=== PATIENT | male | born 1940 | race Two or more races ===

== ENCOUNTER 2017-03-17 14:02 | Inpatient (IN) | payer MEDICARE, BC ==
[~2017-03-17] VITALS: Ht 167.6 cm; Wt 73.5 kg
--- NOTE | 2017-03-17 14:05 | NUR ---
[id number] FROM [facility] RECOVERY: ALOC, PINPOINT PUPILS. ELECTRIC BRAIN WAVE EQUIPMENT MECHANIC ~ 0900AM. PT ALSO NOTED HYPOXIC AND LOW BP. PLACED PT ON NON REBREATHER WITH NOTED HELP. PT REMAINS ALTERED. ANSWERS SIMPEL QUESTIONS. AFEBRILE. GOWNED PT AND PLACED ON TELE MONITOR
[2017-03-17] MEDS ORDERED: NALOXONE PREFILLED SYRINGE 2 MG/2 ML SYRINGE ONE (14:20)
[2017-03-17] MEDS ORDERED: NALOXONE HCL 0.4 MG/ML AMPUL IV ONE (14:30)
[2017-03-17] MEDS ORDERED: IV NS 0.9% 1,000 ML BAG IV ONE ×2 (14:30→15:30)
--- NOTE | 2017-03-17 14:30 | NUR ---
EKG IN PROGRESS
[2017-03-17 14:37] LABS: BASOPHILS # (AUTO) 0.1 /CMM (0.0-0.2); BASOPHILS % (AUTO) 1.1 % (0.0-2.0); EOSINOPHILS # (AUTO) 0.1 /CMM (0.0-0.7); EOSINOPHILS % (AUTO) 0.7 % (0.0-6.0); HEMATOCRIT 42 % (39-51); HEMOGLOBIN 14.3 g/dL (13.5-17.5); LYMPHOCYTES # (AUTO) 1.2 /CMM (0.8-4.8); MEAN CORPUSCULAR HEMOGLOBIN 28 PG (26.0-33.0); MEAN CORPUSCULAR HGB CONC 34 g/dl (31.0-36.0); MEAN CORPUSCULAR VOLUME 82 fL (80-96); MONOCYTES # (AUTO) 0.6 /CMM (0.1-1.30); MONOCYTES % (AUTO) 6.8 % (2.0-12.0); NEUTROPHILS # (AUTO) 6.9 /CMM (1.8-8.9); NEUTROPHILS % (AUTO) 78.4 % (43.0-81.0); PLATELET COUNT (AUTO) 130 /CMM (150-450); RDW COEFFICIENT OF VARIATION 18.3 (11.5-15.0); RED BLOOD CELL COUNT(AUTO) 5.16 MIL/uL (4.5-6.0); WHITE BLOOD COUNT (AUTO) 8.9 K/uL (4.3-11.0)
[2017-03-17 14:47] LABS: CALCIUM, SERUM 8.9 mg/dL (8.5-10.1); CARBON DIOXIDE 26 mmol/L (21-32); CHLORIDE 103 mmol/L (98-107); GLUCOSE 108 mg/dL (74-106); POTASSIUM 3.9 mmol/L (3.5-5.1); SODIUM SERUM 137 mmol/L (136-145); UREA NITROGEN, BLOOD 30 mg/dL (7-18)
[2017-03-17] MEDS ORDERED: CHLO25CA10 PO (14:47)
[2017-03-17] MEDS ORDERED: FOLI1TAB16 PO (14:47)
[2017-03-17] MEDS ORDERED: VALA100026 PO (14:47)
[2017-03-17] MEDS ORDERED: DOXA8TAB79 PO (14:48)
--- NOTE | 2017-03-17 14:48 | NUR ---
PT WAS TAKEN TO CT
[2017-03-17 14:51] LABS: INR 0.91 (0.87-1.13)
[2017-03-17 14:54] LABS: TROPONIN I < 0.017 ng/mL (0.00-0.056)
[2017-03-17] MEDS ORDERED: BUPR2TAB3 SL (14:56)
[2017-03-17] MEDS ORDERED: BUPR8TAB4 SL (14:56)
[2017-03-17 14:57] LABS: ACETAMINOPHEN < 2 ug/ml (10-30); ALANINE AMINOTRANSFERASE 59 U/L (12-78); ALBUMIN 3.5 g/dL (3.4-5.0); ALCOHOL, BLOOD < 3 mg/dL (0-0); ALKALINE PHOSPHATASE 62 U/L (46-116); ASPARTATE AMINOTRANSFERASE 73 U/L (15-37); BILIRUBIN,DIRECT 0.1 mg/dL (0.0-0.2); BILIRUBIN,TOTAL 0.7 mg/dL (0.2-1.0); SALICYLATE 1.1 mg/dL (2.8-20.0); TOTAL PROTEIN, SERUM 7.2 g/dL (6.4-8.2)
[2017-03-17] MEDS ORDERED: THEANINE PO (14:58)
[2017-03-17 15:04] LABS: SERUM AMMONIA 16 umol/L (11-32)
--- NOTE | 2017-03-17 15:18 | NUR ---
URINE SAMPLE SENT TO LAB
[2017-03-17 15:36] LABS: APPEARANCE,URINE Clear (CLEAR); BILIRUBIN,URINE SMALL (NEGATIVE); BLOOD, URINE Negative Ery/uL (NEGATIVE); COLOR,URINE Yellow (YELLOW); KETONES,URINE 15 (NEGATIVE); LEUKOCYTE ESTERASE ,URINE Negative (NEGATIVE); NITRITE, URINE Negative (NEGATIVE); PH,URINE 5.5 (5.0-8.0); PROTEIN,URINE Trace mg/dl (NEGATIVE); UGLUCOSE Negative (NEGATIVE); UROBILINOGEN,URINE 0.2 EU/dL (0.2)
[2017-03-17 15:42] LABS: THYROID STIMULATING HORMONE 1.875 uIU/mL (0.358-3.74)
[2017-03-17 15:43] LABS: RBC,URINE 0-2 /HPF (0-2); WBC,URINE 0-2 /HPF (0-3)
[2017-03-17 15:44] LABS: BACTERIA,URINE None seen /HPF (None Seen); SQUAMOUS EPITHELIAL CELL,UR Rare /HPF (None Seen)
--- NOTE | 2017-03-17 16:01 | NUR ---
[employer] [phone]
[2017-03-17] MEDS ORDERED: CEFTRIAXONE 1GM BAG (ER ONLY) 1 GM/50 ML PIGGYBACK IV ONE (16:30)
[2017-03-17] MEDS ORDERED: AZITHROMYCIN 500 MG in IV D5W 250 ML IV ONE (16:30)
--- NOTE | 2017-03-17 16:44 | NUR ---
PT TRANSPORTED TO [place].
[2017-03-17 17:00] VITALS: BP 91/66
[2017-03-17] MEDS ORDERED: MAG HYDROX/AL HYDROX/SIMETH 30 ML UDC PO PRN ×2 (17:00)
[2017-03-17] MEDS ORDERED: MAGNESIUM HYDROXIDE 30 ML UDC PO PRN (17:00)
[2017-03-17] MEDS ORDERED: ZOLPIDEM TARTRATE 5 MG TABLET PO PRN ×2 (17:00)
[2017-03-17] MEDS ORDERED: Z GUARD REMEDY 2 OZ OINT TP PRN ×2 (17:00)
[2017-03-17] MEDS ORDERED: ENOXAPARIN SODIUM 40 MG/0.4 ML DISP.SYRIN SQ SCH (17:00)
[2017-03-17] MEDS ORDERED: ACETAMINOPHEN 325 MG TABLET PO PRN (17:00)
[2017-03-17] MEDS ORDERED: ONDANSETRON HCL/PF 4 MG/2 ML VIAL IVP PRN ×2 (17:00)
[2017-03-17] MEDS ORDERED: IV NS 0.9% 1,000 ML IV PRN (17:00)
[2017-03-17] MEDS ORDERED: HYDROCODONE/APAP 5/325MG 1 EACH TABLET PO PRN ×2 (17:00)
--- NOTE | 2017-03-17 17:00 | NUR ---
STEAM TRAIN DRIVERWILD LIFE MANAGER NOTES ADMITTED PT FROM ER WITH DX OF ACUTE WEAKNESS AND ACUTE ENCEPHALOPATY,WITH SECONDARY DX A.DEHYDRATION AND PRE-RENAL AZOTEMIA.PT IS TOO LETHARGIC WHEN TALKING.OCCASIONALLY OPENS HIS EYES AND RESPONDS TO NAME AND TACTILE STIMULI.PT HAS SMALL SKIN TEAR TO LEFT 4TH METACARPAL -INITIAL TX DONE.ON O2 AT 4L/MIN VIA N/C.IVF OF NS INFUSING WELL TO RT WRIST.NO S/S OF PAIN OR DISTRESS.CALL LIGHT PLACED WITHIN REACH.
[2017-03-17] MEDS: IV NS 0.9% 1,000 ML IV PRN (17:56)
--- NOTE | 2017-03-17 19:00 | NUR ---
RN NOTES: RECEIVED LYING ON BED,ON SEMI FOWLERS POSITION, ON TELE MONITOR SR RATE-73,WITH O2 INHALATION AT 2-3L/MIN VIA NASAL CANNULA, IVF OF NS AT 100CC/HR,CANNULA ON RW G#18 INTACT,PATIENT IS VERY LETHARGIC AND DROWSY, RESPOND ONLY TO PAINFUL STIMULI,BED LOW AND LOCKED, CALL LIGHT WITHIN EASY REACH,MONITOR LOC.LOVENOX GIVEN PER ENDORSEMENT.
[2017-03-17] MEDS: ENOXAPARIN SODIUM 40 MG/0.4 ML DISP.SYRIN SQ SCH (19:39)
[2017-03-17 20:00] VITALS: BP 100/65
--- NOTE | 2017-03-17 21:06 | NUR ---
RN NOTES: ENDORSED TO ANA LILIA(LISA) FOR CONTINUITY OF CARE.PATIENT IS STILL LETHARGIC AND SLEEPING AT ALL TIMES,KEEP ON CLOSE MONITORING.
[2017-03-17] MEDS: DOXAZOSIN MESYLATE (4 MG) 4 MG TABLET PO SCH (22:00)
--- NOTE | 2017-03-17 22:15 | NUR ---
TELE/RN SUCTIONED ORALLY DUE TO SALIVA RETENTION.
--- NOTE | 2017-03-17 23:09 | NUR ---
TELE/RN CARDURA NOT GIVEN AT THIS TIME, PATIENT IS VERY LETHARGIC, HIGH RISK FOR ASPIRATION.
[2017-03-18] VITALS (7 sets, daily range): BP systolic 100–129; BP diastolic 49–71
[2017-03-18] MEDS: IV NS 0.9% 1,000 ML IV PRN ×2 (03:23→15:12)
[2017-03-18 03:36] LABS: ABG BASE EXCESS -3.5 mmol/L; ABG PCO2 40.8 mmHg (35.0-45.0); ABG PH 7.348 (7.350-7.450); ABG PO2 72.5 mmHg (75.0-100.0); AaDO2 252.6 mmHg; COHb 0.2 % (0.5-1.5); MetHb 0.6 % (0.0-1.5); O2Hb 92.3 % (94.0-97.0); SITE, ABG Right Radial; VENT MODE, BG SIMPLE MASK
--- NOTE | 2017-03-18 05:19 | NUR ---
TELE/RN PATIENT HAS VERY SMALL AMOUNT URINE OUTPUT, ORDERED OBTAINED FROM EFRAIN EDOUARD, FOR STRAIGHT CATH.
--- NOTE | 2017-03-18 05:23 | NUR ---
TELE/RN UNABLE TO DO STRAIGHT CATH, CATHETER NOT GOING THROUGH. CHARGE NURSE ATTEMPTED, NOT SUCCESSFUL EITHER. MEDIA SALES CONSULTANT CALLED E.R., ER. WILL SEND SOMEBODY.
[2017-03-18] MEDS ORDERED: LIDOCAINE 2% JEL UROJET 10 ML MM ONE (05:43)
--- NOTE | 2017-03-18 06:07 | NUR ---
TELE/RN SARKIS, ENTERPRISE SYSTEMS MANAGER CAME AND SUCCESSFULLY INSERTED CUDET CATHETER WITH 400 MLS AVELINO CLEAR URINE OUTPUT.
--- NOTE | 2017-03-18 07:00 | NUR ---
TELE/RN PATIENT IS COMFORTABLY SLEEPING, NO DISTRESS NOTED, CALL LIGHT IN REACH. ALL NEEDS ATTENDED AT THIS TIME. WILL CONTINUE TO MONITOR.
[2017-03-18] MEDS ORDERED: PANTOPRAZOLE 40 MG TABLET.DR PO SCH (07:30)
[2017-03-18] MEDS: PANTOPRAZOLE 40 MG TABLET.DR PO SCH (07:30)
--- NOTE | 2017-03-18 08:00 | NUR ---
UNIT COORDINATOR AM NOTES RECEIVED PT STILL LETHARGIC.OCCASIONALLY OPENS HIS EYES AND RESPONDS TO NAME AND TACTILE STIMULI.ASLEEP MOST OF THE TIME.ON O2 AT 4L/MIN VIA N/C.IVF OF NS INFUSING WELL AT 100ML/HR TO RT WRIST.NO S/S OF PAIN OR DISTRESS.SPITTED A LOT OF THICK PHLEGM SECRETIONS.ORAL CARE DONE.PT CAN'T SWALLOW WELL AT THIS TIME.TRIED TO GIVE ONE SMALL ICE CHIP BUT PT IS STILL HAVING DIFFICULTY SWALLOWING.HELD ALL ORAL PILLS AND MEAL AT THIS TIME.PT SLEEPS MOST OF THE TIME.CALL LIGHT PLACED WITHIN REACH.
[2017-03-18] MEDS: FOLIC ACID 1 MG TABLET PO SCH (09:00)
[2017-03-18] MEDS: VALACYCLOVIR HCL 500 MG TABLET PO SCH (09:00)
[2017-03-18] MEDS: Thiamine 100 MG in IV D5W 50 ML IV SCH (15:31)
--- NOTE | 2017-03-18 15:49 | NUR ---
WAS SEEN BY P.T. AND STAYED WITH PT AT BEDSIDE DOING MAX ASSIST BY STANDING.
--- NOTE | 2017-03-18 17:36 | NUR ---
MED SURG 3 RN CLOSING NOTES PATIENT IN BED, ALERT AND RESTING COMFORTABLY. EASILY AROUSED AND ABLE TO VERBALIZE NEEDS. RIGHT WRIST IV SITE INFUSING WELL WITH 0.9 NS AT 100ML/HR. PATIENT ON 4L OF OXYGEN VIA NASAL CANNULA AND BREATHING COMFORTABLY. PATIENT DOES NOT VERBALIZE ANY PAIN OR SHOW SYMPTOMS OF DISTRESS. NEUROLOGICAL STATUS HAS IMPROVED, PATIENT IS ALERT AND ORIENTED TO PERSON, PLACE, TIME, RESPONDS TO VERBAL STIMULI AND FOLLOWS COMMANDS. BED IN LOW POSITION WITH TWO SIDE RAILS UP AND CALL LIGHT WITHIN REACH.
--- NOTE | 2017-03-18 18:20 | NUR ---
FED PATIENT DINNER WAS HAVING DIFFICULTY CHEWING MEAT AND MUSHROOMS BUT WAS ABLE TO CONSUME ONE CUP OF ICE CREAM AND ONE CUP OF PUDDING, AND 4 SPOONS OF PASTA.
--- NOTE | 2017-03-18 18:53 | NUR ---
DR MCKEON ORDERED LUMBAR PUNCTURE PROCEDURE AND QUE OF RADIOLOGY CALLED SAYING THERE IS NO RADIOLOGIST AVAILABLE TO DO THE PROCEDURE NOT TILL MONDAY.CONSENT OBTAINED FROM DAUGHTER,ARACELY YOUNG VIA PHONE FOR THE PROCEDURE.
--- NOTE | 2017-03-18 20:15 | NUR ---
MS/TRACER BULLET SECTION SUPERVISOR; RECEIVED PT IN BED TRYING TO GET OUT OF BED . ASSISTED AND REPOSITIONED IN BED WITH A HELP FROM AN RN. JOHN GILLILAND CAME AT THIS TIME FOR HER ROUND. SHE SAID TO TRANSFER THE PT CLOSER TO THE STATION. PT WITH CUDET FC WITH AVELINO URINE IN THE BAG 1OO ML. IVF ON PROGRESS. WITH O2 2L NC ON. PT WAS SAYING I WANT TO URINATE AND I TOLD THE PT HE HAS A CATH. ON. BED ON LOWER POSITION AND LOCKED FOR SAFETY. SIDE RAILS X 4 ARE UP FOR SAFETY AND PADDED. CONTINUE TO MONITOR. CALL LIGHT WITHIN REACH.
--- NOTE | 2017-03-18 21:00 | NUR ---
MS/AN/SSN 2 4 OPERATOR; PT MOVED TO 310-1 VIA BED.
[2017-03-18] MEDS: ENOXAPARIN SODIUM 40 MG/0.4 ML DISP.SYRIN SQ SCH (22:16)
[2017-03-18] MEDS: DOXAZOSIN MESYLATE (4 MG) 4 MG TABLET PO SCH (22:21)
[2017-03-19] MEDS: IV NS 0.9% 1,000 ML IV PRN (02:40)
--- NOTE | 2017-03-19 02:55 | NUR ---
MS/HELMET COVERER; PT TRYING TO GET OUT OF BED AND PT DID IT AND SAT ON THE CHAIR WITH AUDITOR INTERNAL AT THE BEDSIDE. PT VERY AGITATED AND COMBATIVE.
--- NOTE | 2017-03-19 03:25 | NUR ---
MS/SERVICE AIDE; I PLACED A CALL TO DR. SILKE COTO AND SPOKE TO HER THAT PT IS VERY AGITATED AND COMBATIVE AND WITH ORDER TO GIVE SEROQUEL 25 MG PO X 1 AND IF PT REFUSE TO CALL HER BACK.
[2017-03-19] MEDS ORDERED: QUETIAPINE FUMARATE 25 MG TABLET PO ONE (03:30)
[2017-03-19] MEDS ORDERED: QUETIAPINE FUMARATE 25 MG TABLET PO SCH (03:30)
--- NOTE | 2017-03-19 03:30 | NUR ---
MS/CUSTOM APPLICATOR; PT ENDORSED TO THE LISA ZUNIGA FOR CONTINUITY OF CARE AND WAS INFORMED ALSO TO GIVE THE SEROQUEL 25 MG PO X ONE.
--- NOTE | 2017-03-19 03:50 | NUR ---
RN NOTES RECEIVED REPORT FROM SHAHRZAD DAVIS. PATIENT IS IN BED, AWAKE AND MUMBLES WORDS. VS STABLE. NO C/O PAIN AT THIS TIME. NO SOB NOTED. RESPIRATIONS EVEN AND UNLABORED. PATIENT IS ON OXYGEN 4L, TOLERATING WELL. IV ACCESS ON RIGHT WRIST 20G PATENT AND INTACT, NO REDNESS OR INFILTRATION NOTED. F/C IS IN PLACE, DRAINING CLEAR AND YELLOW URINE. BED IN LOW AND LOCKED POSITION, SIDE RAILS X3. CALL LIGHT WITHIN EASY REACH. WILL CONTINUE TO MONITOR.
[2017-03-19 06:43] LABS: CALCIUM, SERUM 8.9 mg/dL (8.5-10.1); CARBON DIOXIDE 24 mmol/L (21-32); CHLORIDE 108 mmol/L (98-107); CREATININE 0.9 mg/dL (0.6-1.3); GLUCOSE 94 mg/dL (74-106); MAGNESIUM 1.9 mg/dL (1.8-2.4); POTASSIUM 3.6 mmol/L (3.5-5.1); SODIUM SERUM 141 mmol/L (136-145); UREA NITROGEN, BLOOD 12 mg/dL (7-18)
--- NOTE | 2017-03-19 06:48 | NUR ---
RN CLOSING NOTES PATIENT IS SLEEPING IN BED, EASY TO AROUSE. SITTER PRESENT AT BEDSIDE. VS STABLE. NO SOB NOTED. RESPIRATIONS EVEN AND UNLABORED. PATIENT IS ON OXYGEN 4L. IV ACCESS ON RIGHT WRIST 20G PATENT AND INTACT, NO REDNESS OR INFILTRATION NOTED. F/C IS IN PLACE, DRAINING CLEAR AND YELLOW URINE. OUTPUT 580 ML. ALL NEEDS ARE MET AND MEDICATIONS GIVEN PER MD ORDER. BED IN LOW AND LOCKED POSITION, SIDE RAILS X3. CALL LIGHT WITHIN EASY REACH. WILL ENDORSE TO RN DAY SHIFT FOR KIARA.
[2017-03-19] MEDS: PANTOPRAZOLE 40 MG TABLET.DR PO SCH (07:30)
--- NOTE | 2017-03-19 07:30 | NUR ---
m/s technical support 1 software engineer: initial assessment received pt in bed with eyes close, appears lethargic, but arousable. sitter at bedside. resp. even and unlabored. will continue to monitor.
[2017-03-19 08:00] VITALS: BP 116/56
--- NOTE | 2017-03-19 08:21 | NUR ---
MS DEHYDROGENATION OPERATOR OF CARE NOTE RECEIVED BEDSIDE REPORT FROM SUSAN HINKLE. PATIENT HAS BEEN REASSIGNED FROM ARIN DAVIS TO MIO GONZALEZ. PATIENT IS ASLEEP, CONFUSED, LETHARGIC. SITTER AT THE BEDSIDE. NO S/S OF DISTRESS. PATIENT IS ON 4L 02 VIA NC SATURATING 93%. PATIENT IS IN BED. BED IS LOCKED IN LOWEST POSITION, SIDE RAILS UP X3, BED ALARM IS ON. CALL LIGHT WITHIN REACH. SITTER AT THE BEDSIDE. ALL NEEDS ARE MET. WILL CONTINUE TO ASSESS/MONITOR THROUGHOUT THE SHIFT.
[2017-03-19] MEDS ORDERED: IPRATROPIUM NEB FS 0.5 MG/2.5 ML AMPUL.NEB ONE (08:32)
[2017-03-19] MEDS ORDERED: ALBUTEROL FS 2.5 MG/3 ML VIAL.NEB ONE (08:32)
[2017-03-19] MEDS: VALACYCLOVIR HCL 500 MG TABLET PO SCH (09:00)
[2017-03-19] MEDS: FOLIC ACID 1 MG TABLET PO SCH (09:00)
--- NOTE | 2017-03-19 09:00 | NUR ---
m/s hat designer: notes held am meds due to pt remains lethargic. will continue to monitor. sitter remains at bedside. will monitor.
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
[2017-03-19] MEDS ORDERED: HALOPERIDOL LACTATE INJ 5 MG/ML VIAL IM ONE (12:30)
--- NOTE | 2017-03-19 12:36 | NUR ---
m/s environmental laboratory technician: notes haldol 5mg im given to right deltoid due to aggressive behavior. sitter remains at bedside. will continue to monitor.
--- NOTE | 2017-03-19 13:00 | NUR ---
m/s weeder thinner: notes pt dozing on and off, kept comfortable. sitter remains at bedside. will continue to monitor.
[2017-03-19] MEDS: Thiamine 100 MG in IV D5W 50 ML IV SCH (13:02)
--- NOTE | 2017-03-19 14:00 | NUR ---
m/s media consultant outside sales: notes pt remains confused, drowsy, but pt keeps turning and tossing in bed. repositioned and kept comfortable. reality orientation provided prn. sitter at bedside. will continue to monitor.
--- NOTE | 2017-03-19 16:00 | NUR ---
m/s dye penetrant testing technician: notes pt sounds asleep at this time. no s/s of resp. distress noted. sitter remains at bedside. will monitor.
--- NOTE | 2017-03-19 18:45 | NUR ---
m/s parking meter servicer: notes pt awake, remains confused and disoriented to time, place, and situation. reality orientation provided prn. needs attended. sitter remains at bedside. will monitor.
[2017-03-19] MEDS ORDERED: CHLORDIAZEPOXIDE HCL 25 MG CAPSULE PO PRN (19:00)
--- NOTE | 2017-03-19 19:35 | NUR ---
MS RN INITIAL NOTES PT IS IN BED RESTLESS. NO SIGNS OF SOB OR DISTRESS. BREATHING EVENLY AND UNLABORED ON RA. O2 NOTED TO BE 85%, PLACED PT ON NC 4L O2 INCREASED TO 90%, PLACED PT ON SIMPLE MASK AND O2 INCREASED TO 94%. IV ACCESS IN INTACT AND RUNNING WITH NS AT 50 ML/HR. SITTER IS AT BEDSIDE. TIWARI CATHETER INTACT AND DRAINING. BED IS IN LOW AND LOCKED POSITION, CALL LIGHT WITHIN REACH. WILL CONTINUE TO MONITOR PT
[2017-03-19 20:00] VITALS: BP 143/86
[2017-03-19] MEDS: ENOXAPARIN SODIUM 40 MG/0.4 ML DISP.SYRIN SQ SCH ×2 (21:00→21:32)
[2017-03-19] MEDS ORDERED: CHLORDIAZEPOXIDE HCL 25 MG CAPSULE ONE (21:16)
[2017-03-19] MEDS: DOXAZOSIN MESYLATE (4 MG) 4 MG TABLET PO SCH (22:00)
[2017-03-20] MEDS ORDERED: CHLORDIAZEPOXIDE HCL 25 MG CAPSULE ONE (01:00)
[2017-03-20] MEDS ORDERED: LORAZEPAM INJ 2 MG/ML VIAL IV ONE (06:00)
[2017-03-20] MEDS ORDERED: LORAZEPAM INJ 2 MG/ML VIAL ONE (06:13)
--- NOTE | 2017-03-20 07:00 | NUR ---
RN OPENING NOTES PT IN BED EYES CLOSED, RESPONSIVE TO TACTILE AND VERBAL STIMULI. NO ACUTE DISTRESS NOTED, BREATHING UNLABORED. IV ACCESS INTACT, INFUSING NS@50ML/HR. BILATERAL SOFT RESTRAINTS IN PLACE, CHECK WITH GOOD CIRCULATION. ON O2 @ 6LPM SATURATING AT 93% .SAFETY MEASURES IN PLACE. HOB ELEVATED. CALL LIGHT WITHIN REACH. WILL CONTINUE TO MONITOR ACCORDINGLY.
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
[2017-03-20] MEDS: PANTOPRAZOLE 40 MG TABLET.DR PO SCH (07:30)
[2017-03-20 08:00] VITALS: BP 128/74
[2017-03-20] MEDS: IV NS 0.9% 1,000 ML IV PRN (08:35)
[2017-03-20] MEDS: VALACYCLOVIR HCL 500 MG TABLET PO SCH (09:00)
[2017-03-20] MEDS: FOLIC ACID 1 MG TABLET PO SCH (09:00)
--- NOTE | 2017-03-20 09:45 | NUR ---
MS RN NOTES SEEN AND EVALUATED BY EFRAIN MARX WITH NEW ORDERS MADE. NOTED AND CARRIED OUT. MADE AWARE THAT UNABLE TO DO LUMBAR PUNCTURE AT THIS TIME, PATIENT IS RESTLESS.
[2017-03-20] MEDS ORDERED: HALOPERIDOL LACTATE INJ 5 MG/ML VIAL IM ONE (10:00)
[2017-03-20] MEDS: IV D5/ 0.9% NACL 1,000 ML IV PRN (10:11)
--- NOTE | 2017-03-20 11:00 | NUR ---
MS RN NOTES LUMBAR PUNCTURE DONE BY DR MCKEON AT BEDSIDE, PATIENT TOLERATED WELL. PATIENT LAID FLAT IN BED. ST JENNIFER DONE, FINISHER OPERATOR JACI MARX AT BEDSIDE WITH NEW ORDERS FOR NPO. NOTED AND CARRIED OUT.
[2017-03-20 11:38] LABS: CSF GLUCOSE 68 mg/dL (40-70); CSF PROTEIN 37.2 mg/dL (15-45)
[2017-03-20 12:00] VITALS: BP 141/69
[2017-03-20] MEDS ORDERED: OLANZAPINE 5 MG/TAB.RAPDIS PO PRN (12:30)
--- NOTE | 2017-03-20 12:30 | NUR ---
MS GONZALEZ NOTES SEEN AND EVALUATED BY DR REYNAGA. Addendum: 03/20/17 at 1402 by CHAPIN LACKEY RN WITH NEW ORDERS MADE BY DR REYNAGA FOR ZYPREXA ZYDIS 5MG BID AND PRN SL. HOLD FOR SEDATION. MD YOU PT ON NPO.
[2017-03-20] MEDS: Thiamine 100 MG in IV D5W 50 ML IV SCH (13:49)
[2017-03-20 16:00] VITALS: BP 122/62
[2017-03-20] MEDS: OLANZAPINE 5 MG/TAB.RAPDIS PO SCH (17:00)
--- NOTE | 2017-03-20 17:00 | NUR ---
RN NOTES HELD ZYPREXA PATIENT IS SEDATED.
--- NOTE | 2017-03-20 18:00 | NUR ---
MS RN CLOSING NOTES PATIENT IN BED EYES CLOSED, RESPONSIVE TO TACTILE AND VERBAL STIMULI.NO SOB NOTED. NO ACUTE DISTRESS NOTED. BREATHING UNLABORED.DENIED ANY PAIN. IV ACCESS INTACT, INFUSING D5 NS@75ML/HR. BILATERAL SOFT RESTRAINTS IN PLACE, CHECKED WITH GOOD CIRCULATION.KEPT ON NPO. ON O2 @ 6LPM SATURATING AT 96% .HOB ELEVATED. SAFETY MEASURES IN PLACE. HOB ELEVATED. DUE MEDICATIONS GIVEN. NO ASE NOTED. NEEDS ATTENDED.CALL LIGHT WITHIN REACH. WILL CONTINUE TO MONITOR ACCORDINGLY. WILL ENDORSE TO CLIENT LEADER.
--- NOTE | 2017-03-20 19:05 | NUR ---
RN OPEN NOTES RECEIVED PATIENT AWAKE IN BED WITH SITTER AT BEDSIDE. A/O X2. NO SIGNS OF DISTRESS OR DISCOMFORT. BREATHING EVEN AND UNLABORED. ON 6LPM O2 VIA SIMPLE MASK. IV ACCESS IN RFA WITH D5NS INFUSING, PATENT AND INTACT, NO SIGNS OF REDNESS OR INFILTRATION. ON BILATERAL SOFT WRIST RESTRAINTS WITH NO SKIN OR CIRCULATION ISSUES NOTED. HAS F/C INTACT WITH AVELINO CLEAR FLUID DRAINING. BED IN LOW LOCKED POSITION WITH SIDE RAILS X3. CALL LIGHT WITHIN REACH. WILL CONTINUE TO MONITOR.
[2017-03-20 20:00] VITALS: BP 142/73
[2017-03-20] MEDS: ENOXAPARIN SODIUM 40 MG/0.4 ML DISP.SYRIN SQ SCH (21:56)
[2017-03-20] MEDS: DOXAZOSIN MESYLATE (4 MG) 4 MG TABLET PO SCH (22:00)
[2017-03-21] MEDS: IV D5/ 0.9% NACL 1,000 ML IV PRN (00:25)
[2017-03-21] MEDS: LORAZEPAM INJ 2 MG/ML VIAL IV PRN ×2 (00:25→17:42)
--- NOTE | 2017-03-21 00:25 | NUR ---
RN NOTES ADMINISTERED ATIVAN 1MG ORDERED FOR AGITATION. PATIENT ANXIOUS AND RESTLESS. VSS. WILL CONTINUE TO MONITOR.
--- NOTE | 2017-03-21 04:05 | NUR ---
RN NOTES ADMINISTERED ZYPREXA ZYDIS 5MG ORDERED FOR AGITATION. PATIENT TRYING TO KICK AND HIT STAFF, YELLING AND SCREAMING, USING PROFANITY AND ATTEMPTING TO REMOVE F/C. VSS. WILL CONTINUE TO MONITOR.
[2017-03-21 06:28] LABS: BASOPHILS % (AUTO) 0.1 % (0.0-2.0); EOSINOPHILS # (AUTO) 0.1 /CMM (0.0-0.7); EOSINOPHILS % (AUTO) 1.2 % (0.0-6.0); HEMATOCRIT 37 % (39-51); HEMOGLOBIN 12.3 g/dL (13.5-17.5); LYMPHOCYTES # (AUTO) 0.6 /CMM (0.8-4.8); LYMPHOCYTES % (AUTO) 9.6 % (20.0-44.0); MEAN CORPUSCULAR HEMOGLOBIN 28 PG (26.0-33.0); MEAN CORPUSCULAR HGB CONC 34 g/dl (31.0-36.0); MEAN CORPUSCULAR VOLUME 84 fL (80-96); MONOCYTES # (AUTO) 0.9 /CMM (0.1-1.30); MONOCYTES % (AUTO) 14.2 % (2.0-12.0); NEUTROPHILS % (AUTO) 74.9 % (43.0-81.0); PLATELET COUNT (AUTO) 123 /CMM (150-450); RDW COEFFICIENT OF VARIATION 19.6 (11.5-15.0); RED BLOOD CELL COUNT(AUTO) 4.36 MIL/uL (4.5-6.0); WHITE BLOOD COUNT (AUTO) 6.7 K/uL (4.3-11.0)
[2017-03-21 06:37] LABS: ALANINE AMINOTRANSFERASE 29 U/L (12-78); ALBUMIN 2.2 g/dL (3.4-5.0); ALKALINE PHOSPHATASE 50 U/L (46-116); ASPARTATE AMINOTRANSFERASE 43 U/L (15-37); BILIRUBIN,TOTAL 0.6 mg/dL (0.2-1.0); CALCIUM, SERUM 8.7 mg/dL (8.5-10.1); CARBON DIOXIDE 22 mmol/L (21-32); CHLORIDE 107 mmol/L (98-107); CREATININE 0.8 mg/dL (0.6-1.3); GLUCOSE 91 mg/dL (74-106); MAGNESIUM 1.9 mg/dL (1.8-2.4); PHOSPHORUS 1.8 mg/dL (2.5-4.9); POTASSIUM 3.1 mmol/L (3.5-5.1); SODIUM SERUM 142 mmol/L (136-145); TOTAL PROTEIN, SERUM 6.5 g/dL (6.4-8.2); UREA NITROGEN, BLOOD 9 mg/dL (7-18)
--- NOTE | 2017-03-21 07:28 | NUR ---
RN CLOSING NOTES PATIENT AWAKE IN BED WITH SITTER AT BEDSIDE. A/O X2. NO SIGNS OF DISTRESS OR DISCOMFORT. BREATHING EVEN AND UNLABORED. ON 6LPM O2 VIA SIMPLE MASK. IV ACCESS IN RFA WITH D5NS INFUSING, PATENT AND INTACT, NO SIGNS OF REDNESS OR INFILTRATION. ON BILATERAL SOFT WRIST RESTRAINTS WITH NO SKIN OR CIRCULATION ISSUES NOTED. PATIENT HAS BEEN VERY COMBATIVE AND AGITATED. HAS F/C INTACT WITH AVELINO CLEAR FLUID DRAINING. ALL NEEDS MET. NO SIGNIFICANT CHANGES THROUGH THE NIGHT. BED IN LOW LOCKED POSITION WITH SIDE RAILS X3. CALL LIGHT WITHIN REACH. ENDORSED TO AM SHIFT FOR KIARA.
[2017-03-21] MEDS: PANTOPRAZOLE 40 MG TABLET.DR PO SCH (07:30)
[2017-03-21 08:00] VITALS: BP 138/77
--- NOTE | 2017-03-21 08:08 | NUR ---
MED SURG 3 RN AM NOTES RECEIVED PATIENT ALERT AND ORIENTED X 2 IN BED. ON OXYGEN 6L/MIN VIA MASK, BREATHING COMFORTABLY. ON SOFT BILATERAL WRIST RESTRAINTS WITH NO CIRCULATION OR SKIN ISSUES NOTED. SITTER AT THE BEDSIDE. TIWARI CATHETER PATENT AND FLOWING FREELY AVELINO URINE. IV RIGHT FOREARM INTACT AND INFUSING WELL D5NS AT 75ML/HR. BED IN LOW POSITION, SIDE RAILS UP X 3 WITH CALL LIGHT WITHIN REACH.
[2017-03-21] MEDS: FOLIC ACID 1 MG TABLET PO SCH (08:26)
[2017-03-21] MEDS: VALACYCLOVIR HCL 500 MG TABLET PO SCH (08:26)
[2017-03-21] MEDS: OLANZAPINE 5 MG/TAB.RAPDIS PO SCH ×2 (08:26→17:00)
--- NOTE | 2017-03-21 10:00 | NUR ---
SEEN BY SPEECH THERAPIST WHO STATED THAT THE PT IS NOT SAFE TO EAT SINCE HE GETS DISTRACTED AND NEEDS TO STAY FOCUS TO SWALLOW HIS FOOD.PT IS STILL POCKETING FOOD IN HIS MOUTH.CONTINUES ON NPO.
[2017-03-21] MEDS ORDERED: NEUTRA PHOS 1 POWD.PACKET PO ONE (13:00)
[2017-03-21] MEDS ORDERED: Sodium Phosphate 15 MMOL in IV D5W 250 ML IV ONE (14:00)
[2017-03-21] MEDS: POTASSIUM CL. PREMIX PERIPHER. 50 ML IV SCH ×4 (14:28→23:29)
[2017-03-21] MEDS: Thiamine 100 MG in IV D5W 50 ML IV SCH (15:49)
[2017-03-21 16:00] VITALS: BP 155/86
--- NOTE | 2017-03-21 18:12 | NUR ---
MED SURG 3 RN CLOSING NOTE PATIENT ALERT AND ORIENTED X 2. VITALS STABLE, NO COMPLAINTS OR SIGNS/SYMPTOMS OF PAIN, NO SIGNS/SYMPTOMS OF DISTRESS. ON OXYGEN 6L/MIN VIA MASK, BREATHING COMFORTABLY. ON BEDREST WITH SOFT BILATERAL WRIST RESTRAINTS WITH NO CIRCULATION OR SKIN ISSUES NOTED. SITTER AT THE BEDSIDE. TIWARI CATHETER PATENT AND FLOWING FREELY AVELINO URINE. 22G IV RIGHT FOREARM INTACT AND INFUSING WELL. BED IN LOW POSITION, SIDE RAILS UP X 3 WITH CALL LIGHT WITHIN REACH
--- NOTE | 2017-03-21 20:00 | NUR ---
MS RN OPENING NOTES: RECEIVED PATIENT IN BED, AWAKE WITH O2 INHALATION VIA MASK AT 6LP. PATIENT IS CONFUSED AND DISORGANIZED, WITH BILATERAL SOFT RESTRAINTS ON BOTH ARMS. REALITY ORIENTATION DONE. IVF ON RIGHT HAND ON GOING, NO SIGNS OF PHLEBITIS OR REDNESS OR INFECTION ON SITE. WILL ADMINISTER ORDERED MEDICATIONS. TIWARI CATH IN PLACE DRAINING CLEAR YELLOW URINE. PATIENT ON 1:1 SITTER FOR SAFETY AND IN CLOSE PROXIMITY. BED IN LOW AND LOCKED POSITION. WILL CONTINUE TO MONITOR.
[2017-03-21] MEDS: ENOXAPARIN SODIUM 40 MG/0.4 ML DISP.SYRIN SQ SCH (20:31)
[2017-03-21] MEDS: DOXAZOSIN MESYLATE (4 MG) 4 MG TABLET PO SCH (22:00)
--- NOTE | 2017-03-22 00:34 | NUR ---
MS RN CLOSING NOTES: PATIENT IN BED ASLEEP, IVF ON GOING. POTASSIUM REPLACEMENT 4 BAGS COMPLETED. ENDORSED PATIENT TO LISA KYLE FOR CONTINUITY OF CARE.
--- NOTE | 2017-03-22 01:00 | NUR ---
RN NOTES RECEIVED REPORT FROM LISA RAYMOND. PATIENT IS IN BED, ALERT AND ORIENTEDX2. SITTER PRESENT AT BEDSIDE. VS STABLE. NO SOB NOTED. RESPIRATIONS EVEN AND UNLABORED. IV ACCESS ON RFA PATENT AND INTACT, NO REDNESS OR INFILTRATION NOTED. F/C IS IN PLACE, DRAINING CLEAR AND YELLOW URINE. BED IN LOW AND LOCKED POSITION, SIDE RAILSX3. CALL LIGHT WITHIN EASY REACH. WILL CONTINUE TO MONITOR AND ASSESS DURING THE SHIFT.
[2017-03-22] MEDS: LORAZEPAM INJ 2 MG/ML VIAL IV PRN ×3 (05:02→16:49)
[2017-03-22 07:39] LABS: CALCIUM, SERUM 8.7 mg/dL (8.5-10.1); CARBON DIOXIDE 23 mmol/L (21-32); CHLORIDE 108 mmol/L (98-107); CREATININE 0.9 mg/dL (0.6-1.3); GLUCOSE 87 mg/dL (74-106); POTASSIUM 3.4 mmol/L (3.5-5.1); SODIUM SERUM 145 mmol/L (136-145); UREA NITROGEN, BLOOD 10 mg/dL (7-18)
--- NOTE | 2017-03-22 07:40 | NUR ---
RN CLOSING NOTES PATIENT IS IN BED, ALERT AND ORIENTEDX2. SITTER PRESENT AT BEDSIDE. VS STABLE. NO SOB NOTED. RESPIRATIONS EVEN AND UNLABORED. IV ACCESS ON RFA PATENT AND INTACT, NO REDNESS OR INFILTRATION NOTED. F/C IS IN PLACE, DRAINING CLEAR AND YELLOW URINE. URINE OUTPUT 400 ML. ALL NEEDS ARE MET AND MEDICATIONS GIVEN PER MD ORDER. BED IN LOW AND LOCKED POSITION, SIDE RAILSX3. CALL LIGHT WITHIN EASY REACH. WILL ENDORSE TO RN DAY SHIFT FOR KIARA.
[2017-03-22 08:00] VITALS: BP 141/75
--- NOTE | 2017-03-22 08:00 | NUR ---
MED SURG 3 RN AM NOTE RECEIVED PATIENT ALERT AND ORIENTED X 2 IN BED. VITALS SIGNS STABLE, NO SIGNS OR SYMPTOMS OF PAIN OR DISTRESS. ON OXYGEN 6L/MIN VIA MASK, BREATHING COMFORTABLY. ON SOFT BILATERAL WRIST RESTRAINTS WITH NO CIRCULATION OR SKIN ISSUES NOTED WITH SITTER AT THE BEDSIDE. TIWARI CATHETER PATENT AND FLOWING FREELY AVELINO URINE. IV RIGHT FOREARM INTACT AND INFUSING WELL D5NS AT 75ML/HR. BED IN LOW POSITION, SIDE RAILS UP X 3 WITH CALL LIGHT WITHIN REACH
[2017-03-22] MEDS: ACETAMINOPHEN 325 MG TABLET PO PRN (09:05)
[2017-03-22] MEDS: VALACYCLOVIR HCL 500 MG TABLET PO SCH (09:06)
[2017-03-22] MEDS: PANTOPRAZOLE 40 MG TABLET.DR PO SCH (09:10)
[2017-03-22] MEDS: OLANZAPINE 5 MG/TAB.RAPDIS PO SCH ×3 (09:10→16:34)
[2017-03-22] MEDS: FOLIC ACID 1 MG TABLET PO SCH (09:10)
--- NOTE | 2017-03-22 09:10 | NUR ---
SPEECH THERAPY WORKING WITH PATIENT, ATTEMPTING TO ADMINISTER PO MEDICATIONS.
[2017-03-22] MEDS ORDERED: POTASSIUM CHLORIDE 20 MEQ TAB.PRT.SR PO SCH (10:00)
[2017-03-22] MEDS ORDERED: POTASSIUM CL. PREMIX PERIPHER. 50 ML IV SCH (10:43)
[2017-03-22] MEDS: GABAPENTIN 100 MG CAPSULE PO SCH ×2 (12:48→16:34)
[2017-03-22] MEDS: POTASSIUM CL. PREMIX PERIPHER. 50 ML IV SCH ×2 (12:51→14:18)
[2017-03-22] MEDS: CEFTRIAXONE 1 G in IV D5W 50 ML IV SCH (12:56)
[2017-03-22] MEDS ORDERED: LEVOFLOXACIN 750 MG /D5W 150ML 750 MG in PREMIX 1 EA IV SCH (13:00)
[2017-03-22] MEDS: Thiamine 100 MG in IV D5W 50 ML IV SCH (14:19)
[2017-03-22 16:00] VITALS: BP 125/79
[2017-03-22] MEDS: IV D5/ 0.9% NACL 1,000 ML IV PRN (16:50)
--- NOTE | 2017-03-22 17:51 | NUR ---
MED SURG 3 RN CLOSING NOTE PATIENT IN BED RESTING COMFORTABLY. VITALS STABLE, OXYGEN VIA MASK WITH 6L/MIN RESPIRATIONS UNLABORED. PATIENT ON BILATERAL SOFT WRIST RESTRAINTS, WITH NO CIRCULATION ISSUES AND NO SKIN BREAKDOWN SEEN, SITTER AT BEDSIDE. TIWARI CATHETER PATENT WITH AVELINO URINE FLOWING FREELY. RIGHT FOREARM 22G IV WITH D5NS INFUSING WELL AT 75ML/HR, WITHOUT COMPLICATIONS. BED IN LOW POSITION AND LOCKED WITH SIDE RAILS UP X3. CALL LIGHT WITHIN REACH.
[2017-03-22] MEDS: METRONIDAZOLE 500MG/ NS 100ML 500 MG in PREMIX 1 EA IV SCH (18:34)
--- NOTE | 2017-03-22 19:15 | NUR ---
MS/ERECTOR OPERATOR; RECEIVED PT IN BED ON SUPINE POSITION SLEEPING WITH O2 6L VIA MASK. HAS BILATERAL SOFT WRIST RESTRAINTS ON. HAS CATHETER ON WITH 30 ML IN THE DRAINAGE BAG AVELINO COLOR. NOTED IVF ON PROGRESS BUT THE IV SITE ON RFA IS SWOLLEN. I TOLD THE DAY SHIFT RN THE IV SITE IS SWOLLEN. BED ON LOWER POSITION AND LOCKED FOR SAFETY. SIDE RAILS ARE UP X 4 FOR SAFETY. DAY SHIFT SITTER STILL PRESENT. WILL CONTINUE TO MONIOTR FOR SAFETY. CALL LIGHT WITHIN REACH.
--- NOTE | 2017-03-22 19:20 | NUR ---
MS/PRINCIPAL PRODUCT MANAGER; DAY SHIFT JUAN GONZALEZ STARTED A NEW IV LINE ON LAC # 20 AND IVF RESUMED. WILL CONTINUE TO MONITOR.
[2017-03-22 20:00] VITALS: BP 145/64
--- NOTE | 2017-03-22 20:25 | NUR ---
MS/COTTRELL BLOWER; I SPOKE TO DR. OROZCO BY THE PHONE I TOLD HER PT IS ON LOVENOX 40 MG SQ DUE AT 2100 IF IT IS OK TO GIVE PT'S PLATELET IS [phone] OROZCO SAID OK TO GIVE.
[2017-03-22] MEDS: ENOXAPARIN SODIUM 40 MG/0.4 ML DISP.SYRIN SQ SCH (20:46)
[2017-03-22] MEDS: DOXAZOSIN MESYLATE (4 MG) 4 MG TABLET PO SCH (22:00)
--- NOTE | 2017-03-22 22:00 | NUR ---
MS/AIR PRESS OPERATOR; CARDURA 8 MG PO HS NOT GIVEN PT IS ON NPO.
--- NOTE | 2017-03-22 22:30 | NUR ---
MS/RING STRIKER; PT KEPT MOVING. NOTED PT PAD IS WET URINE MODERATE AMOUNT. PERINEAL CARE RENDERED. TOTAL BED LINENS CHANGED. TURNED AND REPOSITIONED. BILATERAL SOFT WRIST RESTRAINTS RELEASED FOR 15 MINUTES DURING CLEANING THE PT ALSO TO CHECK FOR CIRCULATION. WILL CONTINUE TO MONITOR.
[2017-03-23] VITALS: BP 139/73
[2017-03-23] MEDS: METRONIDAZOLE 500MG/ NS 100ML 500 MG in PREMIX 1 EA IV SCH ×3 (00:10→11:45)
--- NOTE | 2017-03-23 01:10 | NUR ---
MS/ESTIMATOR PROJECT MANAGER; PT IS AWAKE VERY AGITATED, SCREAMING LOUD AND KICKING. I INFORMED THE RN FOR PRN MED FOR AGITATION. BP LA 139 / 73, P 73.
[2017-03-23] MEDS: LORAZEPAM INJ 2 MG/ML VIAL IV PRN ×3 (01:15→21:31)
--- NOTE | 2017-03-23 01:45 | NUR ---
MS/SUPERVISOR EVAPORATOR; I INFORMED THE CHARGE NURSE THAT PT IS COUGHING AND WHEEZING AND I DID SUCTIONED ORALLY WITH SOME WHITISH SECRETIONS. SHE SAID TO CALL
--- NOTE | 2017-03-23 01:50 | NUR ---
MS/AIX ADMINISTRATOR; I PLACED A CALL TO DR. OROZCO ELECTRONIC OPERATOR SAID SHE WIIL TEXT DR. OROZCO AND CALL ME BACK. AWAITING.
--- NOTE | 2017-03-23 02:00 | NUR ---
MS/TINNING EQUIPMENT TENDER; DR. OROZCO RETURN HER CALL AND I NOTIFIED HER THAT PT IS COUGHING AND WHEEZING AND I DI SUCTION ORALLY WITH SOME WHITISH SECRETIONS. DR. OROZCO WITH ORDER OF ALBUTEROL 2.5 MG Q4 HOURS PRN AND GIVE ONE NOW AND HOLD IV FLUIDS. I TOLD DR. OROZCO PT IS ON NPO AND SHE SAID THAT'S OK. CHARGE NURSE MADE AWARE OF DR. PARADA'S ORDERS.
--- NOTE | 2017-03-23 02:00 | NUR ---
MS/LEGAL CASHIER; IV FLUIDS ON HOLD ORDERED BY DR. OROZCO.
--- NOTE | 2017-03-23 02:05 | NUR ---
MS/ASSOCIATE PROFESSOR OF PHILOSOPHY; SAMANTHA, RT NOTIFIED OF MD'S ORDER AND SHE CAME TO THE PT DID O2 SAT 89-90 % . SHE GAVE BREATHING TREATMENT.AFTER THE THE TREATMENT SHE DID DEEP SUCTIONING WITH SOME SECRETIONS. AND PUT BACK THE O2 AND SHE TITRATE TO 10L BY MASK.
[2017-03-23] MEDS ORDERED: ALBUTEROL FS 2.5 MG/0.5 ML VIAL.NEB ONE (02:06)
[2017-03-23] MEDS: ALBUTEROL FS 2.5 MG/0.5 ML VIAL.NEB NEB PRN ×3 (02:09→19:42)
--- NOTE | 2017-03-23 02:15 | NUR ---
MS/COLLEGE RECRUITER; O2 SAT WITH 10 L BY MASK 93-95- 96 % , WITH HR 82-84.
--- NOTE | 2017-03-23 03:30 | NUR ---
MS/REAMING MACHINE OPERATOR FOR PLASTIC; PT IS SLEEPING AT THIS TIME. CALM. IVF IS STILL ON HOLD ORDERED.
--- NOTE | 2017-03-23 04:30 | NUR ---
MS/LOSS PREVENTION AUDITOR; STILL SLEEPING . STILL ON O2 AT 10 L BY MASK.
--- NOTE | 2017-03-23 06:00 | NUR ---
MS/REED OR WIND INSTRUMENT REPAIRER; SLEEPING AT THIS TIME. STILL WITH O2 10 L BY MASK. NO WHEEZING AT THIS TIME. IVF STILL ON HOLD. WILL CONTINUE TO MONITOR.
--- NOTE | 2017-03-23 06:55 | NUR ---
MS/DEMAND PLANNING MANAGER; PT IN BED RESTING WITH EYES CLOSED. WITH EYES CLOSED. IVF STILL ON HOLD. WILL CONTINUE TO MONITOR. SITTER PRESENT AT ALL TIMES. WILL ENDORSE TO THE DAY SHIFT RN FOR CONTINUITY OF CARE. FC INTACT WITH 550 ML URINE OUTPUT CLEAR AVELINO.
[2017-03-23] MEDS: PANTOPRAZOLE 40 MG TABLET.DR PO SCH (07:30)
--- NOTE | 2017-03-23 07:30 | NUR ---
MSRN OPENING NOTE. PT RECEIVED WITH 1:1 SITTER. PT WITH SOFT RESTRAINTS AND NEURO INTACT, PT REPOSITIONED. PT A&0X1, CONFUSED BUT TALKING, SPEECH GARBLED WITH ONLY SOME WORDS UNDERSTANDABLE. PT WITH O2 VIA SIMPLE MASK AT 10L, LUNGS AUSCULTATED PREDOMINANTLY CLEAR WITH SOME RHONCHI, SAO2 AT 96%. RT PRN REQUESTED. PT WITH IVC DELMAR AC INTACT AND OPERATIONAL AT TKO, ENDORSED WITH FLUIDS ON HOLD R/T WHEEZING OVERNIGHT, WILL FOLLOW UP WITH MD. PT WITH TIWARI INTACT AND OPERATIONAL. PT BED IN LOWEST LOCKED POSITION WITH HANDRAILSX4 AND CALL GAINES WITHIN REACH. WILL CONTINUE TO MONITOR CLOSELY.
[2017-03-23 07:46] LABS: EOSINOPHILS # (AUTO) 0.2 /CMM (0.0-0.7); HEMATOCRIT 36 % (39-51); HEMOGLOBIN 11.8 g/dL (13.5-17.5); LYMPHOCYTES # (AUTO) 1.5 /CMM (0.8-4.8); LYMPHOCYTES % (AUTO) 19.2 % (20.0-44.0); MEAN CORPUSCULAR HEMOGLOBIN 28 PG (26.0-33.0); MEAN CORPUSCULAR HGB CONC 33 g/dl (31.0-36.0); MEAN CORPUSCULAR VOLUME 84 fL (80-96); MONOCYTES % (AUTO) 12.9 % (2.0-12.0); NEUTROPHILS % (AUTO) 65.9 % (43.0-81.0); PLATELET COUNT (AUTO) 196 /CMM (150-450); RED BLOOD CELL COUNT(AUTO) 4.22 MIL/uL (4.5-6.0); WHITE BLOOD COUNT (AUTO) 7.7 K/uL (4.3-11.0)
[2017-03-23 08:00] VITALS: BP 131/64
[2017-03-23 08:22] LABS: CALCIUM, SERUM 8.4 mg/dL (8.5-10.1); CARBON DIOXIDE 21 mmol/L (21-32); CHLORIDE 111 mmol/L (98-107); CREATININE 0.9 mg/dL (0.6-1.3); GLUCOSE 93 mg/dL (74-106); PHOSPHORUS 3.2 mg/dL (2.5-4.9); POTASSIUM 3.2 mmol/L (3.5-5.1); SODIUM SERUM 147 mmol/L (136-145); UREA NITROGEN, BLOOD 13 mg/dL (7-18)
[2017-03-23] MEDS: VALACYCLOVIR HCL 500 MG TABLET PO SCH (09:00)
[2017-03-23] MEDS: FOLIC ACID 1 MG TABLET PO SCH (09:00)
[2017-03-23] MEDS: OLANZAPINE 5 MG/TAB.RAPDIS PO SCH ×3 (09:00→16:43)
[2017-03-23] MEDS: GABAPENTIN 100 MG CAPSULE PO SCH ×3 (09:00→16:43)
--- NOTE | 2017-03-23 12:00 | NUR ---
MSRN. PT HAD BRIEF PERIOD OF CLARITY BETWEEN 11-12 AND WAS A&0X3, SPEECH LESS GARBLED BUT REMAINED SLURRED.
--- NOTE | 2017-03-23 13:00 | NUR ---
MSRN NOTES. PT DAUGHTER ARACELY. [phone]
[2017-03-23] MEDS: CHLORDIAZEPOXIDE HCL 25 MG CAPSULE PO SCH ×2 (13:08→16:43)
[2017-03-23] MEDS: POTASSIUM CHLORIDE 20 MEQ POWDER PACKET PO SCH ×2 (13:08→13:30)
[2017-03-23] MEDS: CEFTRIAXONE 1 G in IV D5W 50 ML IV SCH (13:42)
[2017-03-23 16:00] VITALS: BP 112/76
[2017-03-23] MEDS ORDERED: POTASSIUM CHLORIDE 20 MEQ POWDER PACKET PO SCH (16:00)
--- NOTE | 2017-03-23 16:00 | NUR ---
MSRN- PT DAUGHTER AND SON CONTACTED PT TODAY.
[2017-03-23] MEDS: METRONIDAZOLE 500 MG TABLET PO SCH (17:42)
--- NOTE | 2017-03-23 18:21 | NUR ---
MSRN CLOSING NOTES. PT A&0X1 AT THIS TIME, PT SPEECH IS GARBLED AND ONLY A FEW WORDS CAN BE UNDERSTOOD. PT OBEYING COMMANDS. PT WITH FREQUENT EPISODES OF RESTLESSNESS AND CONFUSION. PT WITH SOFT WRIST RESTRAINTS, NEURO INTACT AND WITH REPOSITIONING AND OFFLOADING PRESCRIBED PLUS PRN. PT WITH O2 VIA NC AT 6LPM AND SAO2 MAINTAINED AT 92-96%. SIMPLE MASK AT BEDSIDE WHEN NEEDED. PT MOUTH BREATHER WHEN ASLEEP. PT RESPS FAST, EVEN BUT SHALLOW. PT WITH IVC AT L AC G#20 INTACT AND OPERATIONAL WITH TKO. PT WITH TIWARI INTACT AND OPERATIONAL WITH 400ML OUTPUT. PT PASSED SWALLOW EVAL AND IS WITH PUREED DIET. PT BED IN LOWEST LOCKED POSITION WITH HANDRAILSX4, BLANKETS COVERING OPENINGS FOR SAFETY AND CALL GAINES WITHIN REACH. ALL DAY NURSE DUTIES ATTENDED TO AND PT IS WITHOUT CONCERN COMPLAINT AT THIS TIME. WILL ENDORSE TO NIGHT NURSE AT BEDSIDE.
--- NOTE | 2017-03-23 19:30 | NUR ---
MS RN OPENING NOTES PT IS IN BED WITH 1:1 SITTER. BILATERAL SOFT WRIST RESTRAINTS IN PLACE, WITH GOOD CIRCULATION NOTED AND NEURO INTACT. PT IS A/O X1, SPEECH IS GARBLED AND UNABLE TO COMPREHEND IT. PT IS ON 6L NC WITH SHALLOW BREATHING, SATING AT 96%. TIWARI CATHETER IS INTACT AND DRAINING. BED IS IN LOW AND LOCKED POSITION. ENDORSED TO F/U WITH SILKE REGARDING FLUIDS. WILL CONTINUE TO MONITOR PT
[2017-03-23 20:00] VITALS: BP 114/71
[2017-03-23] MEDS: DOXAZOSIN MESYLATE (4 MG) 4 MG TABLET PO SCH (21:29)
[2017-03-23] MEDS ORDERED: IV D5/ 0.9% NACL 1,000 ML IV PRN (21:30)
[2017-03-23] MEDS: ENOXAPARIN SODIUM 40 MG/0.4 ML DISP.SYRIN SQ SCH (21:30)
--- NOTE | 2017-03-23 23:29 | NUR ---
D5NS @75ML/HR RESUMED ORDERED PER SILKE. WILL CONTINUE TO MONITOR PT
[2017-03-24] MEDS: METRONIDAZOLE 500 MG TABLET PO SCH ×4 (00:23→17:03)
[2017-03-24 04:00] VITALS: BP 135/76
[2017-03-24] MEDS: ALBUTEROL FS 2.5 MG/0.5 ML VIAL.NEB NEB PRN (05:23)
--- NOTE | 2017-03-24 06:15 | NUR ---
MS RN OPENING NOTES PT IS IN BED WITH 1:1 SITTER. BILATERAL SOFT WRIST RESTRAINTS IN PLACE, WITH GOOD CIRCULATION NOTED AND NEURO INTACT. PT IS A/O X1-2, SPEECH IS GARBLED BUT MORE VERBAL THIS MORNING AND ABLE TO COMPREHEND SOME OF HIS SPEECH. PT IS ON 5L NC WITH SHALLOW BREATHING, SATING AT 96%. TIWARI CATHETER IS INTACT AND DRAINING. IV IS INTACT AND PATENT, D5NS AT 75 ML/HR RESUMED. ALL NEEDS WERE ANTICIPATED AND MET. BED IS IN LOW AND LOCKED POSITION. WILL ENDORSE TO DAYSHIFT.
--- NOTE | 2017-03-24 07:44 | NUR ---
MS RN OPENING NOTES RECEIVED PATIENT IN STABLE CONDITION. IN NO APPARENT DISTRESS. BEDSIDE RAILS ARE UP X2. BED IS LOCKED AND LOWERED. CALL LIGHT IS WITHIN REACH. WILL CONTINUE TO MONITOR.
[2017-03-24 08:02] LABS: HEMATOCRIT 36 % (39-51); HEMOGLOBIN 12.1 g/dL (13.5-17.5); MEAN CORPUSCULAR HEMOGLOBIN 28 PG (26.0-33.0); MEAN CORPUSCULAR HGB CONC 34 g/dl (31.0-36.0); MEAN CORPUSCULAR VOLUME 84 fL (80-96); PLATELET COUNT (AUTO) 240 /CMM (150-450); RDW COEFFICIENT OF VARIATION 20.1 (11.5-15.0); RED BLOOD CELL COUNT(AUTO) 4.33 MIL/uL (4.5-6.0)
[2017-03-24 08:18] LABS: CALCIUM, SERUM 8.4 mg/dL (8.5-10.1); CARBON DIOXIDE 24 mmol/L (21-32); CHLORIDE 114 mmol/L (98-107); CREATININE 0.8 mg/dL (0.6-1.3); GLUCOSE 121 mg/dL (74-106); MAGNESIUM 1.9 mg/dL (1.8-2.4); PHOSPHORUS 2.9 mg/dL (2.5-4.9); SODIUM SERUM 151 mmol/L (136-145); UREA NITROGEN, BLOOD 12 mg/dL (7-18)
[2017-03-24 08:19] LABS: POTASSIUM 2.8 mmol/L (3.5-5.1)
[2017-03-24] MEDS: FOLIC ACID 1 MG TABLET PO SCH (08:49)
[2017-03-24] MEDS: OLANZAPINE 5 MG/TAB.RAPDIS PO SCH ×3 (08:49→17:04)
[2017-03-24] MEDS: PANTOPRAZOLE 40 MG TABLET.DR PO SCH (08:49)
[2017-03-24] MEDS: VALACYCLOVIR HCL 500 MG TABLET PO SCH (08:49)
[2017-03-24] MEDS: THIAMINE HCL 100 MG TABLET PO SCH (08:49)
[2017-03-24] MEDS: CHLORDIAZEPOXIDE HCL 25 MG CAPSULE PO SCH ×2 (08:50→17:03)
[2017-03-24] MEDS: GABAPENTIN 100 MG CAPSULE PO SCH ×3 (08:50→17:04)
[2017-03-24 09:12] LABS: BAND % (MANUAL) 1 % (0.0-5.0); EOSINOPHILS % (MANUAL) 1 % (0-4); LYMPHOCYTES % (MANUAL) 19 % (16-48); MONOCYTES % (MANUAL) 8 % (0-11.0); NEUTROPHILS % (MANUAL) 71 (42-76)
[2017-03-24] MEDS: LORAZEPAM INJ 2 MG/ML VIAL IV PRN (11:13)
[2017-03-24] MEDS: CEFTRIAXONE 1 G in IV D5W 50 ML IV SCH (12:32)
[2017-03-24] MEDS: POTASSIUM CL. PREMIX PERIPHER. 50 ML IV SCH ×3 (13:49→17:57)
[2017-03-24] MEDS: POTASSIUM CHLORIDE 20 MEQ POWDER PACKET PO SCH (13:49)
--- NOTE | 2017-03-24 15:30 | NUR ---
CALLED PHARMACY ABOUT REMAINING 2 BAGS OF POTASSIUM. PHARMACY WILL PROVIDE
[2017-03-24] MEDS: IV D5W 1,000 ML IV PRN (16:13)
--- NOTE | 2017-03-24 18:32 | NUR ---
MS RN CLOSING NOTES PATIENT IS RESTING IN BED. IN NO APPARENT DISTRESS. BEDSIDE RAILS ARE UP X2 . BED IS LOCKED AND LOWERED. ALL NEEDS WERE MET. CALL LIGHT IS WITHIN REACH. WILL ENDORSE CARE TO BRUSH PAINTER NURSE FOR KIARA.
--- NOTE | 2017-03-24 19:20 | NUR ---
MS/RN NOTES RECEIVED PT. LYING IN BED. AWAKE, ALERT AND ORIENTED X 1-2. BREATHING EVEN AND UNLABORED ON 5LPM O2 VIA NC. NO SOB, RESPIRATORY DISTRESS OR COMPLAINTS OF PAIN NOTED AT THIS TIME. PT. WITH RIGHT UPPER ARM 22 GAUGE PERIPHERAL IV PRESENT, PATENT AND INTACT ADMINISTERING TO PT. D5W @ 75 ML/HR. PT. WITH TIWARI CATHETER PRESENT, PATENT AND INTACT DRAINING CLEAR AVELINO COLORED URINE. PT. WITH SITTER PRESENT AT BEDSIDE. BED LOCKED AND IN LOWEST POSITION, SIDE RAILS UP X3, BED ALARM ON, CALL LIGHT WITHIN REACH, WILL CONTINUE TO MONITOR.
[2017-03-24 20:00] VITALS: BP 118/66
[2017-03-24] MEDS: GABAPENTIN 300 MG CAPSULE PO SCH (21:22)
[2017-03-24] MEDS: DOXAZOSIN MESYLATE (4 MG) 4 MG TABLET PO SCH (21:23)
[2017-03-24] MEDS: ENOXAPARIN SODIUM 40 MG/0.4 ML DISP.SYRIN SQ SCH (21:23)
[2017-03-25] MEDS: METRONIDAZOLE 500 MG TABLET PO SCH ×4 (00:49→17:30)
[2017-03-25] MEDS: LORAZEPAM INJ 2 MG/ML VIAL IV PRN ×3 (03:02→22:47)
--- NOTE | 2017-03-25 06:10 | NUR ---
MS/RN NOTES PT. IS LYING IN BED RESTING. BREATHING EVEN AND UNLABORED ON 5LPM O2 VIA NC. NO SOB, RESPIRATORY DISTRESS OR COMPLAINTS OF PAIN NOTED AT THIS TIME AND THROUGHOUT SHIFT. PT. WITH RIGHT UPPER ARM 22 GAUGE PERIPHERAL IV PRESENT, PATENT AND INTACT ADMINISTERING TO PT. D5W @ 75 ML/HR. PT. WITH TIWARI CATHETER PRESENT, PATENT AND INTACT DRAINING CLEAR AVELINO COLORED URINE. PT. WITH SITTER PRESENT AT BEDSIDE. ALL PT. NEEDS MET. BED LOCKED AND IN LOWEST POSITION, SIDE RAILS UP X3, BED ALARM ON, CALL LIGHT WITHIN REACH, WILL ENDORSE TO DAYSHIFT NURSE FOR CONTINUITY OF CARE.
[2017-03-25 06:31] LABS: BASOPHILS % (AUTO) 0.2 % (0.0-2.0); EOSINOPHILS # (AUTO) 0.4 /CMM (0.0-0.7); EOSINOPHILS % (AUTO) 4.5 % (0.0-6.0); HEMATOCRIT 36 % (39-51); HEMOGLOBIN 11.9 g/dL (13.5-17.5); LYMPHOCYTES # (AUTO) 1.6 /CMM (0.8-4.8); LYMPHOCYTES % (AUTO) 20.5 % (20.0-44.0); MEAN CORPUSCULAR HEMOGLOBIN 28 PG (26.0-33.0); MEAN CORPUSCULAR HGB CONC 34 g/dl (31.0-36.0); MEAN CORPUSCULAR VOLUME 84 fL (80-96); MONOCYTES # (AUTO) 0.4 /CMM (0.1-1.30); MONOCYTES % (AUTO) 4.9 % (2.0-12.0); NEUTROPHILS # (AUTO) 5.5 /CMM (1.8-8.9); NEUTROPHILS % (AUTO) 69.9 % (43.0-81.0); PLATELET COUNT (AUTO) 253 /CMM (150-450); RDW COEFFICIENT OF VARIATION 20.5 (11.5-15.0); RED BLOOD CELL COUNT(AUTO) 4.22 MIL/uL (4.5-6.0); WHITE BLOOD COUNT (AUTO) 7.8 K/uL (4.3-11.0)
[2017-03-25 06:47] LABS: CALCIUM, SERUM 8.4 mg/dL (8.5-10.1); CARBON DIOXIDE 29 mmol/L (21-32); CHLORIDE 113 mmol/L (98-107); CREATININE 0.8 mg/dL (0.6-1.3); GLUCOSE 106 mg/dL (74-106); MAGNESIUM 1.9 mg/dL (1.8-2.4); PHOSPHORUS 2.7 mg/dL (2.5-4.9); SODIUM SERUM 149 mmol/L (136-145); UREA NITROGEN, BLOOD 11 mg/dL (7-18)
--- NOTE | 2017-03-25 07:30 | NUR ---
MSRN OPENING NOTE. PT RECEIVED A&0X1, ALERT, CONFUSED AND WITH GARBLED SPEECH. PT WITH 1:1 SITTER AND SOFT WRIST RESTRAINTS. PT WITH O2 VIA NC AT 5LPM AND SAO2 AT 94%. PT REPORTING NO PAIN AND IS WITHOUT S/S OF DISTRESS OR DISCOMFORT. PT WITH TIWARI INTACT AND OPERATIONAL. PT NEURO CHECKS WNL. PT REPOSITIONED. WILL CONTINUE TO MONITOR PER PROTOCOL FOR SAFETY.
[2017-03-25 08:00] VITALS: BP 124/65
[2017-03-25] MEDS: VALACYCLOVIR HCL 500 MG TABLET PO SCH (09:41)
[2017-03-25] MEDS: GABAPENTIN 300 MG CAPSULE PO SCH ×3 (09:41→17:30)
[2017-03-25] MEDS: CHLORDIAZEPOXIDE HCL 25 MG CAPSULE PO SCH (09:41)
[2017-03-25] MEDS: OLANZAPINE 5 MG/TAB.RAPDIS PO SCH ×2 (09:41→13:21)
[2017-03-25] MEDS: THIAMINE HCL 100 MG TABLET PO SCH (09:42)
[2017-03-25] MEDS: POTASSIUM CHLORIDE 20 MEQ POWDER PACKET PO SCH (09:42)
[2017-03-25] MEDS: PANTOPRAZOLE 40 MG TABLET.DR PO SCH (09:42)
[2017-03-25] MEDS: FOLIC ACID 1 MG TABLET PO SCH (09:43)
[2017-03-25] MEDS: CEFTRIAXONE 1 G in IV D5W 50 ML IV SCH (13:21)
[2017-03-25] MEDS: IV D5W 1,000 ML IV PRN (13:35)
[2017-03-25] MEDS: MAGNESIUM HYDROXIDE 30 ML UDC PO PRN (14:32)
[2017-03-25] MEDS ORDERED: LORAZEPAM 0.5 MG TABLET PO PRN (17:00)
[2017-03-25] MEDS: BENZTROPINE MESYLATE (1 MG) 1 MG TABLET PO SCH (17:30)
[2017-03-25] MEDS: risperiDONE-M 0.5 MG TAB.RAPDIS PO SCH (17:30)
--- NOTE | 2017-03-25 18:30 | NUR ---
MSRN - PT COMBATIVE, CONFUSED, YELLING FOR POLICE AND ATTEMPTING TO KICK OR STRIKE STAFF AND PULL LINES. PRN ADMINISTERED, IV FLUIDS HELD TILL PT SETTLES. SITTER REMAINS AT BEDSIDE FOR SUPPORT.
--- NOTE | 2017-03-25 18:33 | NUR ---
MSRN CLOSING NOTE. PT REMAINS A&0X1, SPEECH REMAINS GARBLED, SOME PARTS UNDERSTANDABLE. PT CURRENTLY WITHOUT O2 VIA NC R/T COMBATIVE BEHAVIOR, WILL BE REPLACED WHEN SETTLED. PT WITH IVC AT RIGHT AC INTACT AND OPERATIONAL AND FLUIDS HELD R/T PT PULLING LINES. WILL ENDORSE TO NIGHT NURSE TO RECOMMENCE. PT WITH TIWARI INTACT AND OPERATIONAL. PT WITH SOFT BI LAT WRIST RESTRAINTS AND 1:1 SITTER FOR PT AND STAFF SAFETY. NEURO INTACT. ALL DAY NURSE DUTIES ATTENDED TO, WILL ENDORSE TO NIGHT NURSE.
--- NOTE | 2017-03-25 19:00 | NUR ---
MS RN OPENING NOTES RECEIVE PT IN BED, ON 5LPM VIA NC 02 SAT AT 95% SHALLOW BREATHING. SLEEPING RESPONSIVE TO NAME, TOUCH, LIGHT PAIN. A/O 1, PT HAS A 1:1 SITTER. BILATERAL SOFT WRIST RESTRAINTS IN PLACE, WITH GOOD CIRCULATION NOTED AND NEURO INTACT.. TIWARI CATHETER IS INTACT AND DRAINING. SAFETY MEASURES ARE IN PLACE, WILL CONTINUE TO MONITOR.
[2017-03-25 20:00] VITALS: BP 120/69
[2017-03-25] MEDS: ENOXAPARIN SODIUM 40 MG/0.4 ML DISP.SYRIN SQ SCH (21:17)
[2017-03-25] MEDS: DOXAZOSIN MESYLATE (4 MG) 4 MG TABLET PO SCH (21:17)
--- NOTE | 2017-03-25 22:50 | NUR ---
BP 122/74 R 20 P 78 02 SAT 95%
--- NOTE | 2017-03-25 23:47 | NUR ---
MS RN NOTES PT COMFORTABLY ASLEEP, NO SCREAMING NOTED. NO AGITATION
[2017-03-26] MEDS: METRONIDAZOLE 500 MG TABLET PO SCH ×4 (00:08→17:02)
[2017-03-26] MEDS: IV D5W 1,000 ML IV PRN (05:13)
[2017-03-26 05:14] VITALS: BP 135/74
[2017-03-26] MEDS: LORAZEPAM INJ 2 MG/ML VIAL IV PRN ×2 (05:14→14:53)
[2017-03-26 06:35] LABS: BASOPHILS % (AUTO) 0.2 % (0.0-2.0); EOSINOPHILS # (AUTO) 0.3 /CMM (0.0-0.7); EOSINOPHILS % (AUTO) 3.3 % (0.0-6.0); HEMATOCRIT 36 % (39-51); HEMOGLOBIN 12.1 g/dL (13.5-17.5); LYMPHOCYTES # (AUTO) 1.6 /CMM (0.8-4.8); MEAN CORPUSCULAR HEMOGLOBIN 28 PG (26.0-33.0); MEAN CORPUSCULAR HGB CONC 33 g/dl (31.0-36.0); MEAN CORPUSCULAR VOLUME 85 fL (80-96); MONOCYTES # (AUTO) 0.5 /CMM (0.1-1.30); MONOCYTES % (AUTO) 6.7 % (2.0-12.0); NEUTROPHILS # (AUTO) 5.2 /CMM (1.8-8.9); NEUTROPHILS % (AUTO) 68.8 % (43.0-81.0); PLATELET COUNT (AUTO) 305 /CMM (150-450); RDW COEFFICIENT OF VARIATION 20.4 (11.5-15.0); WHITE BLOOD COUNT (AUTO) 7.6 K/uL (4.3-11.0)
--- NOTE | 2017-03-26 06:38 | NUR ---
MS RN CLOSING NOTES PT COMFORTABLY ASLEEP AND EASILY AWAKEN, STILL ON 4LPM NC 02 SAT 95% STABLE CONDITION. RESPIRATION EVEN AND UNLABORED. KEPT CLEAN AND DRY AND COMFORTABLE, NOT IN DISTRESS, ALL NURSING CARE RENDERED. NEEDS ATTENDED AND ANTICIPATED, GOOD SKIN CARE PROVIDED. FREQUENT VISUAL CHECK DONE FOR SAFETY EVERY 2 HOURS. REPOSITIONED PT Q2H FOR SKIN MGT. ON LOW BED AT ALL TIMES TO ENSURE SAFETY. SAFE HAZARD FREE ENVIRONMENT PROVIDED. CALL LIGHT WITHIN EASY TO REACH. WILL ENDORSE NEXT SHIFT CONTINUITY OF CARE.
[2017-03-26 07:05] LABS: CALCIUM, SERUM 8.3 mg/dL (8.5-10.1); CARBON DIOXIDE 28 mmol/L (21-32); CHLORIDE 113 mmol/L (98-107); CREATININE 0.8 mg/dL (0.6-1.3); GLUCOSE 82 mg/dL (74-106); MAGNESIUM 2.1 mg/dL (1.8-2.4); PHOSPHORUS 2.9 mg/dL (2.5-4.9); POTASSIUM 3.4 mmol/L (3.5-5.1); SODIUM SERUM 150 mmol/L (136-145); UREA NITROGEN, BLOOD 13 mg/dL (7-18)
--- NOTE | 2017-03-26 07:24 | NUR ---
MSRN OPENING. PT RECEIVED A&0X1, ALERT WITH GARBLED SPEECH. PT PHYSICALLY RELAXED BUT VERBALLY HOSTILE. PT REMAINS WITH 1:1 SITTER AND BI LAT SOFT WRIST RESTRAINTS, NEURO INTACT. PT O2 VIA NC AT 5L/PM AND SAO2 WNL, NO OBVIOUS S/S OR RESP DISTRESS. PT DENIES PAIN. PT REMAINS WITHOUT BM WILL ADMIN PRN M.O.M AT AM MED PASS. KARIE INACT AND OPERATIONAL WITH 400 IN COLLECTION. PT WITH IVC AT R UA INTACT AND OPERATIONAL. PT ASSISTED WITH REPOSITIONING. BED IN LOWEST LOCKED POSITION WITH HANDRAILSX4 AND PADDED. WILL CONTINUE TO MONITOR.
[2017-03-26] MEDS: BENZTROPINE MESYLATE (1 MG) 1 MG TABLET PO SCH ×3 (08:48→17:02)
[2017-03-26] MEDS: PANTOPRAZOLE 40 MG TABLET.DR PO SCH (08:48)
[2017-03-26] MEDS: risperiDONE-M 0.5 MG TAB.RAPDIS PO SCH ×3 (08:48→17:02)
[2017-03-26] MEDS: FOLIC ACID 1 MG TABLET PO SCH (08:48)
[2017-03-26] MEDS: GABAPENTIN 300 MG CAPSULE PO SCH ×3 (08:48→17:02)
[2017-03-26] MEDS: THIAMINE HCL 100 MG TABLET PO SCH (08:48)
[2017-03-26] MEDS: VALACYCLOVIR HCL 500 MG TABLET PO SCH (08:48)
[2017-03-26] MEDS: POTASSIUM CHLORIDE 20 MEQ POWDER PACKET PO SCH (08:49)
[2017-03-26] MEDS: ACETAMINOPHEN 325 MG TABLET PO PRN (09:05)
[2017-03-26] MEDS: MAGNESIUM HYDROXIDE 30 ML UDC PO PRN (09:05)
--- NOTE | 2017-03-26 11:13 | NUR ---
MSRN - PT REMOVED IVC, NEW PLACED AT LEFT FA G#18, INTACT AND NOW OPERATIONAL.
[2017-03-26] MEDS ORDERED: POTASSIUM CHLORIDE 20 MEQ TAB.PRT.SR PO ONE (11:30)
[2017-03-26] MEDS ORDERED: risperiDONE-M 0.5 MG TAB.RAPDIS PO PRN (12:00)
[2017-03-26] MEDS: CEFTRIAXONE 1 G in IV D5W 50 ML IV SCH (12:21)
[2017-03-26 17:52] VITALS: BP 108/61
--- NOTE | 2017-03-26 19:40 | NUR ---
RN OPENING NOTES RECEIVED REPORT FROM MADELYNHISHOSHANA LEHMAN. FOUND Pt ASLEEP, WITH EVEN AND UNLABORED RESPIRATIONS. NO S/S OF ACUTE DISTRESS OR SOB NOTED. Pt IS A/OX1, CONFUSED AND VERY COMBATIVE. JASON SOFT RESTRAINTS ON. SITTER AT BEDSIDE. TIWARI CATHETER IN PLACE. IV ACCESS ON LFA #18G, IVF D5NS @75ML/HR. SAFETY MEASURES IN PLACE. BED LOW, LOCKED, HOB ELEVATED, SIDE RAILS UP, CALL LIGHT AND BEDSIDE TABLE WITHIN REACH. WILL CONTINUE TO MONITOR Pt THROUGHOUT THE NIGHT FOR SAFETY.
[2017-03-26 21:00] VITALS: BP 119/64
[2017-03-26] MEDS: ENOXAPARIN SODIUM 40 MG/0.4 ML DISP.SYRIN SQ SCH (21:15)
[2017-03-26] MEDS: DOXAZOSIN MESYLATE (4 MG) 4 MG TABLET PO SCH (21:16)
[2017-03-26] MEDS: TEMAZEPAM 7.5 MG CAPSULE PO PRN (23:47)
[2017-03-27] MEDS: LORAZEPAM INJ 2 MG/ML VIAL IV PRN ×2 (00:22→19:37)
--- NOTE | 2017-03-27 00:23 | NUR ---
RN NOTES Pt WAS BECOMING AGITATED AND COMBATIVE, YELLING AND SCREAMING. ADMINISTERED ATIVAN 1MG PRN. Pt WAS BEING UNCOOPERATIVE TO TAKE FLAGYL SCHEDULED AT 0000.
--- NOTE | 2017-03-27 05:35 | NUR ---
Pt MOVED TO ROOM 315-1 FROM 314-1. SITTER AT BEDSIDE.
--- NOTE | 2017-03-27 06:50 | NUR ---
RN CLOSING NOTES NO SIGNIFICANT CHANGES IN Pt's CONDITION. Pt REMAINS STABLE AT THIS TIME. NO S/S OF ACUTE DISTRESS OR SOB NOTED DURING THE NIGHT. ALL NEEDS MET AND ATTENDED TO. SAFETY MEASURES IN PLACE. WILL ENDORSE TO DAYSHIFT RN FOR Pt's KIARA.
[2017-03-27] MEDS: IV D5W 1,000 ML IV PRN (07:01)
[2017-03-27 07:05] LABS: BASOPHILS % (AUTO) 0.2 % (0.0-2.0); EOSINOPHILS # (AUTO) 0.2 /CMM (0.0-0.7); EOSINOPHILS % (AUTO) 2.6 % (0.0-6.0); HEMATOCRIT 34 % (39-51); HEMOGLOBIN 11.5 g/dL (13.5-17.5); LYMPHOCYTES # (AUTO) 1.4 /CMM (0.8-4.8); LYMPHOCYTES % (AUTO) 20.9 % (20.0-44.0); MEAN CORPUSCULAR HEMOGLOBIN 28 PG (26.0-33.0); MEAN CORPUSCULAR HGB CONC 34 g/dl (31.0-36.0); MEAN CORPUSCULAR VOLUME 84 fL (80-96); MONOCYTES # (AUTO) 0.2 /CMM (0.1-1.30); MONOCYTES % (AUTO) 3.6 % (2.0-12.0); NEUTROPHILS % (AUTO) 72.7 % (43.0-81.0); PLATELET COUNT (AUTO) 327 /CMM (150-450); WHITE BLOOD COUNT (AUTO) 6.8 K/uL (4.3-11.0)
[2017-03-27 07:06] LABS: CALCIUM, SERUM 8.1 mg/dL (8.5-10.1); CARBON DIOXIDE 27 mmol/L (21-32); CHLORIDE 111 mmol/L (98-107); CREATININE 0.9 mg/dL (0.6-1.3); GLUCOSE 97 mg/dL (74-106); PHOSPHORUS 2.5 mg/dL (2.5-4.9); SODIUM SERUM 146 mmol/L (136-145); UREA NITROGEN, BLOOD 9 mg/dL (7-18)
[2017-03-27] MEDS: METRONIDAZOLE 500 MG TABLET PO SCH ×5 (07:08→23:35)
[2017-03-27] MEDS: PANTOPRAZOLE 40 MG TABLET.DR PO SCH (07:08)
[2017-03-27 07:29] VITALS: BP 120/73
--- NOTE | 2017-03-27 08:00 | NUR ---
rn notes received patient in the bed, a/o x2, speech is not clear, rambling . patient on o2-2l nc, patient on aspiration precaution HOB keep elevated, f/c drain yellow output, encouraged to increase fluid intake, medication administered crash mixed with apple sauce, iv line on left forearm D5W at 75 ml/hr intact. patient on bilateral wrist soft restrain, checked circulation q 2 hr, 1;1 sitter next to the bed for safety, assist patient turn and reposition q 2 hr, needs attended and anticipated, continued monitoring. no respiratory distress.
[2017-03-27] MEDS: POTASSIUM CHLORIDE 20 MEQ POWDER PACKET PO SCH ×4 (09:16→13:45)
[2017-03-27] MEDS: GABAPENTIN 300 MG CAPSULE PO SCH ×3 (09:17→16:22)
[2017-03-27] MEDS: risperiDONE-M 0.5 MG TAB.RAPDIS PO SCH ×3 (09:17→16:22)
[2017-03-27] MEDS: THIAMINE HCL 100 MG TABLET PO SCH (09:17)
[2017-03-27] MEDS: FOLIC ACID 1 MG TABLET PO SCH (09:17)
[2017-03-27] MEDS: VALACYCLOVIR HCL 500 MG TABLET PO SCH (09:17)
[2017-03-27] MEDS: BENZTROPINE MESYLATE (1 MG) 1 MG TABLET PO SCH ×3 (09:17→16:22)
[2017-03-27 10:57] LABS: BAND % (MANUAL) 2 % (0.0-5.0); EOSINOPHILS % (MANUAL) 2 % (0-4); LYMPHOCYTES % (MANUAL) 20 % (16-48); MONOCYTES % (MANUAL) 3 % (0-11.0); NEUTROPHILS % (MANUAL) 73 (42-76)
--- NOTE | 2017-03-27 12:34 | NUR ---
rn notes patient in the bed, no acute distress at this time, redirectable, realized one hand restrain, encouraged patient use hand, assist eating, needs attended and anticipated, call light within to reach, safety precaution maintained all the time.
[2017-03-27] MEDS: CEFTRIAXONE 1 G in IV D5W 50 ML IV SCH (13:44)
--- NOTE | 2017-03-27 15:07 | NUR ---
RN NOTES GET ORDER FROM ERFAIN COTO D/C F/C, AND D/C SOFT RESTRAIN ORDER TAKEN AND CARRIED OUT. PATIENT RESTING IN THE BED AT THIS TIME, QUIET, COOPERATIVE, NO ACUTE DISTRESS, NO RESPIRATORY DISTRESS. STARTED NEW IV LINE ON RIGHT FOREARM, INFUSING D5W AT 75 ML/HR INTACT, CALL LIGHT WITHIN TO REACH. 1:1 SITTER NEXT TO THE BED FOR SAFETY, CONTINUED MONITORING.,
[2017-03-27 16:00] VITALS: BP 136/72
--- NOTE | 2017-03-27 16:24 | NUR ---
RN NOTES ADMINISTERED ATIVAN 0.5 MG PO PRN FOR ANXIETY, GET IRRITABLE EASILY, V/S TAKEN BP-136/72, P-95, , CALL LIGHT WITHIN TO REACH, SAFETY PRECAUTION MAINTAINED WITH 1:1 SITTER.
--- NOTE | 2017-03-27 18:30 | NUR ---
RN NOTES PATIENT IN THE BED, BLADER SCAN DONE GET 257 ML OF URINE IN THE BLADDER, PATIENT ASPIRATION PRECAUTION KEEP HOB ELEVATED, MEDICATION ADMINISTERED WITH CRASH MIXED APPLE SAUCE, NEEDS ATTENDED AND ANTICIPATED, ASSIST TURN AND REPOSITION Q 2 HR, CALL LIGHT WITHIN TO REACH, SAFETY PRECAUTION MAINTAINED ALL THE TIME WITH 1:1 SITTER. ENDORSED ONCOMING NURSE FOR KIARA.
--- NOTE | 2017-03-27 19:30 | NUR ---
ms rn note received patient awake in bed. Patient yelling and combative. VS wnl. will administer ativan iv as ordered. no sob or distress noted. iv site intact, with no redness noted. sitter at bedside. Bed locked and in lowest position. Side rails up, call light with within reach. Will continue to monitor.
[2017-03-27 20:25] VITALS: BP 105/53
[2017-03-27 20:26] VITALS: BP 105/53
[2017-03-27] MEDS: TEMAZEPAM 7.5 MG CAPSULE PO PRN (21:10)
[2017-03-27] MEDS: ENOXAPARIN SODIUM 40 MG/0.4 ML DISP.SYRIN SQ SCH (21:11)
[2017-03-27 22:00] VITALS: BP 105/53
[2017-03-27] MEDS: DOXAZOSIN MESYLATE (4 MG) 4 MG TABLET PO SCH (22:00)
--- NOTE | 2017-03-28 | NUR ---
ms rn note patient sleeping at this time.
[2017-03-28] MEDS: METRONIDAZOLE 500 MG TABLET PO SCH ×3 (06:00→18:10)
--- NOTE | 2017-03-28 06:19 | NUR ---
ms rn note patient sleeping in bed. No distress noted. All needs met and attended to. Will endorse to day shift for ramesh.
[2017-03-28 06:38] LABS: BASOPHILS % (AUTO) 0.3 % (0.0-2.0); EOSINOPHILS # (AUTO) 0.2 /CMM (0.0-0.7); EOSINOPHILS % (AUTO) 2.2 % (0.0-6.0); HEMATOCRIT 39 % (39-51); HEMOGLOBIN 12.8 g/dL (13.5-17.5); LYMPHOCYTES # (AUTO) 1.7 /CMM (0.8-4.8); LYMPHOCYTES % (AUTO) 23.7 % (20.0-44.0); MEAN CORPUSCULAR HEMOGLOBIN 28 PG (26.0-33.0); MEAN CORPUSCULAR HGB CONC 33 g/dl (31.0-36.0); MEAN CORPUSCULAR VOLUME 85 fL (80-96); MONOCYTES # (AUTO) 0.3 /CMM (0.1-1.30); MONOCYTES % (AUTO) 4.2 % (2.0-12.0); NEUTROPHILS % (AUTO) 69.6 % (43.0-81.0); PLATELET COUNT (AUTO) 336 /CMM (150-450); RED BLOOD CELL COUNT(AUTO) 4.63 MIL/uL (4.5-6.0); WHITE BLOOD COUNT (AUTO) 7.2 K/uL (4.3-11.0)
[2017-03-28 07:03] LABS: CALCIUM, SERUM 8.4 mg/dL (8.5-10.1); CARBON DIOXIDE 27 mmol/L (21-32); CHLORIDE 110 mmol/L (98-107); CREATININE 0.9 mg/dL (0.6-1.3); GLUCOSE 95 mg/dL (74-106); MAGNESIUM 2.2 mg/dL (1.8-2.4); PHOSPHORUS 2.9 mg/dL (2.5-4.9); POTASSIUM 4.2 mmol/L (3.5-5.1); SODIUM SERUM 146 mmol/L (136-145); UREA NITROGEN, BLOOD 8 mg/dL (7-18)
--- NOTE | 2017-03-28 07:05 | NUR ---
MS/RN OPENING NOTE RECEIVED PATIENT IN BED AWAKE. ALERT AND ORIENTED X2. REMINDERS AND REORIENTATION PROVIDED NEEDED. RESPIRATION REGULAR AND UNLABORED. DENIES SOB, DENIES PAIN AT THIS TIME. IN NO APPARENT DISTRESS. RFA G 22 PATENT. BED LOW AND LOCKED. SIDE RAIL UP X2. CALL LIGHT WITHIN REACH. WILL CONTINUE TO MONITOR.
[2017-03-28 07:53] VITALS: BP_SYST 103; BP_SYST 117; BP_DIAS 54; BP_DIAS 70
[2017-03-28] MEDS: THIAMINE HCL 100 MG TABLET PO SCH (08:16)
[2017-03-28] MEDS: PANTOPRAZOLE 40 MG TABLET.DR PO SCH (08:16)
[2017-03-28] MEDS: VALACYCLOVIR HCL 500 MG TABLET PO SCH (08:16)
[2017-03-28] MEDS: BENZTROPINE MESYLATE (1 MG) 1 MG TABLET PO SCH ×3 (08:17→18:10)
[2017-03-28] MEDS: GABAPENTIN 300 MG CAPSULE PO SCH ×3 (08:17→18:10)
[2017-03-28] MEDS: POTASSIUM CHLORIDE 20 MEQ POWDER PACKET PO SCH (08:17)
[2017-03-28] MEDS: FOLIC ACID 1 MG TABLET PO SCH (08:17)
[2017-03-28] MEDS: risperiDONE-M 0.5 MG TAB.RAPDIS PO SCH ×3 (08:17→18:09)
[2017-03-28 13:37] LABS: EOSINOPHILS % (MANUAL) 2 % (0-4); LYMPHOCYTES % (MANUAL) 24 % (16-48); MONOCYTES % (MANUAL) 8 % (0-11.0); NEUTROPHILS % (MANUAL) 66 (42-76)
[2017-03-28] MEDS: CEFTRIAXONE 1 G in IV D5W 50 ML IV SCH (13:59)
[2017-03-28 16:00] VITALS: BP 151/72
[2017-03-28] MEDS: IV D5W 1,000 ML IV PRN (18:23)
--- NOTE | 2017-03-28 18:58 | NUR ---
MS/RN CLOSING NOTE PATIENT IN BED AWAKE. A/O X1. RESPIRATION REGULAR AND UNLABORED. DENIES SOB, PAIN. NO MANIFESTATION OF DISTRESS NOTED. SITTER BY THE BED. THE PATIENT IN NO APPARENT DISTRESSRFA G 22 PATENT AND IV INFUSING WITH NO S/S INFILTRATION. BED LOW AND LOCKED. SIDE RAIL UP X3. CALL LIGHT WITHIN REACH. WILL ENDORSE TO NIGH SHIFT.
--- NOTE | 2017-03-28 19:35 | NUR ---
MS RN INITIAL NOTES PT IS IN BED A/O X1, MUMBLING, CONFUSED. NO SIGNS OF SOB OR DISTRESS. BREATHING EVENLY AND UNLABORED ON RA. 1:1 SITTER. IV ACCESS IS INTACT AND PATENT WITH FLUIDS INFUSING. BED IS IN LOW AND LOCKED POSITION. WILL CONTINUE TO MONITOR PT.
[2017-03-28 19:43] VITALS: BP 140/75
[2017-03-28] MEDS: ENOXAPARIN SODIUM 40 MG/0.4 ML DISP.SYRIN SQ SCH (21:40)
[2017-03-28] MEDS: DOXAZOSIN MESYLATE (4 MG) 4 MG TABLET PO SCH (21:42)
[2017-03-28] MEDS: TEMAZEPAM 7.5 MG CAPSULE PO PRN (21:44)
[2017-03-28] MEDS: LORAZEPAM INJ 2 MG/ML VIAL IV PRN (23:34)
[2017-03-29] MEDS: METRONIDAZOLE 500 MG TABLET PO SCH ×5 (00:45→23:00)
[2017-03-29] MEDS: MAGNESIUM HYDROXIDE 30 ML UDC PO PRN (06:46)
--- NOTE | 2017-03-29 06:48 | NUR ---
MS RN INITIAL NOTES PT IS IN BED AWAKE AND ALERT. WITH SITTER AT BEDSIDE. NO SIGNS OF SOB OR DISTRESS, BREATHING EVENLY AND UNLABORED ON RA. MILK OF MAG WAS GIVEN FOR COMPLAINTS OF STOMACH PAIN THIS MORNING. IV ACCESS IS INTACT AND PATENT. ALL NEEDS WERE ANTICIPATED AND MET. BED IS IN LOW AND LOCKED POSITION, CALL LIGHT WITHIN REACH. WILL ENDORSE TO DAYSHIFT.
--- NOTE | 2017-03-29 07:15 | NUR ---
MS/RN OPENING NOTE PATIENT IN BED AWAKE. A/O X4. DENIES SOB, DENIES PAIN. IN NO APPARENT DISTRESS. RIGHT WRIST G 20 PATENT. BED LOW AND LOCKED. SIDE RAIL UP X2. CALL LIGHT WITHIN REACH. WILL CONTINUE TO MONITOR.
[2017-03-29 08:09] VITALS: BP 137/73
[2017-03-29] MEDS: risperiDONE-M 0.5 MG TAB.RAPDIS PO SCH ×3 (08:58→17:56)
[2017-03-29] MEDS: THIAMINE HCL 100 MG TABLET PO SCH (08:58)
[2017-03-29] MEDS: FOLIC ACID 1 MG TABLET PO SCH (08:58)
[2017-03-29] MEDS: BENZTROPINE MESYLATE (1 MG) 1 MG TABLET PO SCH ×2 (08:58→17:56)
[2017-03-29] MEDS: POTASSIUM CHLORIDE 20 MEQ POWDER PACKET PO SCH (08:58)
[2017-03-29] MEDS: GABAPENTIN 300 MG CAPSULE PO SCH ×3 (08:58→17:56)
[2017-03-29] MEDS: PANTOPRAZOLE 40 MG TABLET.DR PO SCH (09:00)
[2017-03-29] MEDS: VALACYCLOVIR HCL 500 MG TABLET PO SCH (09:00)
[2017-03-29] MEDS: LORAZEPAM 0.5 MG TABLET PO SCH ×3 (11:27→17:55)
--- NOTE | 2017-03-29 13:00 | NUR ---
MS/RN NOTE ATIVAN 0.5 MG DUE AT 1300 HELD DUE TO THE PATIENT SLEEPING. NO S/S ANXIETY NOTED.
[2017-03-29 16:00] VITALS: BP 137/74
[2017-03-29] MEDS: IV D5W 1,000 ML IV PRN (18:53)
--- NOTE | 2017-03-29 19:04 | NUR ---
MS/RN CLOSING NOTE PATIENT IN BED AWAKE. ALERT AND ORIENTED X4. RESPIRATION REGULAR AND UNLABORED. DENIES SOB, PAIN AT THIS TIME. R WRIST IV G 20 PATENT AND NO S/S INFILTRATION NOTED. BED LOW AND LOCKED. SIDE RAILS UP X2. CALL LIGHT WITHIN REACH. WILL ENDORSE TO ASSISTANT SALES CENTER MANAGER.
--- NOTE | 2017-03-29 19:50 | NUR ---
MS RN INITIAL NOTES PT IS IN BED A/O X1, MORE VERBAL TODAY THAN LAST NIGHT BUT STILL HARD TO COMPREHEND DUE TO MUMBLING, CONFUSED. NO SIGNS OF SOB OR DISTRESS. BREATHING EVENLY AND UNLABORED ON RA. SITTER AT BEDSIDE. IV ACCESS IS INTACT AND PATENT WITH FLUIDS INFUSING. BED IS IN LOW AND LOCKED POSITION. WILL CONTINUE TO MONITOR PT.
[2017-03-29] MEDS: ENOXAPARIN SODIUM 40 MG/0.4 ML DISP.SYRIN SQ SCH (21:25)
[2017-03-29] MEDS: DOXAZOSIN MESYLATE (4 MG) 4 MG TABLET PO SCH (21:27)
[2017-03-29 22:00] VITALS: BP 102/57
[2017-03-29] MEDS ORDERED: risperiDONE-M 0.5 MG TAB.RAPDIS PO SCH (22:00)
[2017-03-29] MEDS: TEMAZEPAM 7.5 MG CAPSULE PO PRN (23:06)
[2017-03-30] MEDS: METRONIDAZOLE 500 MG TABLET PO SCH ×3 (05:02→18:04)
[2017-03-30] MEDS: IV D5W 1,000 ML IV PRN (05:07)
--- NOTE | 2017-03-30 06:40 | NUR ---
MS RN CLOSING NOTES PT IS IN BED AWAKE AND ALERT, PLEASANT THIS MORNING. ABLE TO FEED HIMSELF PUDDING USING A SPOON. PT IS MORE VERBAL AND ENGAGING IN CONVERSATION, SPEECH IS STILL A LITTLE GARBLED. SITTER AT BEDSIDE. PT SLEPT WELL. IV IS INTACT AND PATENT WITH D5W AT 75 ML/HR. BED IS IN LOW AND LOCKED POSITION. WILL ENDORSE TO DAYSHIFT.
--- NOTE | 2017-03-30 07:30 | NUR ---
MSRN OPENING NOTES. PT RECEIVED A&0X3 AND SPEECH SLURRED BUT CLEAR, PT CONVERSATIONAL AND APPROPRIATE. PT TOLERATING ROOM AIR WITHOUT SOB AND SAO2 WNL AT 97%. PT REPORTING GENERALIZED BODY ACHE. PT WITH IVC INTACT AND OPERATIONAL. PT BED IN LOWEST LOCKED POSITION WITH HANDRAILSX2 AND CALL GAINES WITHIN REACH. PT BRIEFED ON TODAY'S POC AND IS WITHOUT CONCERN OR COMPLAINT AT THIS TIME.
[2017-03-30 07:50] LABS: EOSINOPHILS # (AUTO) 0.2 /CMM (0.0-0.7); HEMATOCRIT 41 % (39-51); HEMOGLOBIN 13.5 g/dL (13.5-17.5); LYMPHOCYTES # (AUTO) 2.1 /CMM (0.8-4.8); LYMPHOCYTES % (AUTO) 31.6 % (20.0-44.0); MEAN CORPUSCULAR HEMOGLOBIN 28 PG (26.0-33.0); MEAN CORPUSCULAR HGB CONC 33 g/dl (31.0-36.0); MEAN CORPUSCULAR VOLUME 85 fL (80-96); MONOCYTES # (AUTO) 0.6 /CMM (0.1-1.30); MONOCYTES % (AUTO) 8.4 % (2.0-12.0); NEUTROPHILS # (AUTO) 3.7 /CMM (1.8-8.9); PLATELET COUNT (AUTO) 344 /CMM (150-450); RDW COEFFICIENT OF VARIATION 21.4 (11.5-15.0); RED BLOOD CELL COUNT(AUTO) 4.81 MIL/uL (4.5-6.0); WHITE BLOOD COUNT (AUTO) 6.6 K/uL (4.3-11.0)
[2017-03-30 08:45] LABS: CALCIUM, SERUM 8.5 mg/dL (8.5-10.1); CARBON DIOXIDE 26 mmol/L (21-32); CHLORIDE 107 mmol/L (98-107); GLUCOSE 96 mg/dL (74-106); MAGNESIUM 2.3 mg/dL (1.8-2.4); PHOSPHORUS 3.4 mg/dL (2.5-4.9); POTASSIUM 4.2 mmol/L (3.5-5.1); SODIUM SERUM 139 mmol/L (136-145); UREA NITROGEN, BLOOD 5 mg/dL (7-18)
[2017-03-30] MEDS: VALACYCLOVIR HCL 500 MG TABLET PO SCH (09:58)
[2017-03-30] MEDS: FOLIC ACID 1 MG TABLET PO SCH (09:58)
[2017-03-30] MEDS: risperiDONE-M 0.5 MG TAB.RAPDIS PO SCH ×3 (09:58→18:04)
[2017-03-30] MEDS: PANTOPRAZOLE 40 MG TABLET.DR PO SCH (09:58)
[2017-03-30] MEDS: POTASSIUM CHLORIDE 20 MEQ POWDER PACKET PO SCH (09:58)
[2017-03-30] MEDS: LORAZEPAM 0.5 MG TABLET PO SCH ×3 (09:58→18:04)
[2017-03-30] MEDS: BENZTROPINE MESYLATE (1 MG) 1 MG TABLET PO SCH ×2 (09:59→18:04)
[2017-03-30] MEDS: THIAMINE HCL 100 MG TABLET PO SCH (09:59)
[2017-03-30] MEDS: GABAPENTIN 300 MG CAPSULE PO SCH ×3 (09:59→18:05)
[2017-03-30] MEDS: ACETAMINOPHEN 325 MG TABLET PO PRN (10:05)
--- NOTE | 2017-03-30 11:00 | NUR ---
MINOO NOTES. PT DAUGHTER AND SON CALLED TO CHECK IN. PT SPOKE WITH SON.
--- NOTE | 2017-03-30 13:00 | NUR ---
RN NOTES PATIENT IN THE BED A/O X1/2, NO ACUTE RESPIRATORY DISTRESS, V/S STABLE, SCHEDULED MEDICATION ADMINISTERED WITH APPLE SAUCE CRUSHED, PATIENT ASPIRATION PRECAUTION, HOV KEEP ELEVATED, ASSIST TURN AND REPOSITION IN THE BED, 1:1 SITTER NEXT TO THE BED FOR SAFETY, CALL LIGHT WITHIN TO REACH, CONTINUED MONITORING.
--- NOTE | 2017-03-30 13:00 | NUR ---
RN NOTES PATIENT IN THE BED. A/O X1/2, NO ACUTE RESPIRATORY DISTRESS,. V/S STABLE,SCHEDULED MEDICATION ADMINISTERED. 1;1 SITTER NEXT TO THE BED FOR SAFETY, CONTINUED MONITORING.
--- NOTE | 2017-03-30 13:01 | NUR ---
MSRN TRANSFER. PT ENDORSED TO RN AT BEDSIDE FOR CONTINUITY OF CARE. ALL PT NEEDS MET AT THIS TIME AND PT IS WITHOUT CONCERN OR COMPLAINT.
[2017-03-30] MEDS ORDERED: RISP0.5T8 PO ×2 (13:04)
[2017-03-30] MEDS ORDERED: GABA300C PO (13:04)
[2017-03-30] MEDS ORDERED: ALBU2.5V13 NEB (13:04)
[2017-03-30] MEDS ORDERED: PANT40TA2 PO (13:04)
[2017-03-30] MEDS ORDERED: THIA100T13 PO (13:04)
[2017-03-30] MEDS ORDERED: LORA0.5T PO (13:04)
[2017-03-30] MEDS ORDERED: BENZ1TAB7 PO (13:04)
--- NOTE | 2017-03-30 18:07 | NUR ---
RN NOTES PATIENT ON 5150 HOLD AT THIS TIME. GOING TO D/C GPS, PATIENT REDIRECTABLE, COOPERATIVE. SCHEDULED MEDICATION ADMINISTERED, V/S STABLE, 1:1 SITTER NEXT TO THE BED FOR SAFETY, CALL LIGHT WITHIN TO REACH, SAFETY PRECAUTION MAINTAINED ALL THE TIME.
[2017-03-30 18:25] VITALS: BP 105/74
--- NOTE | 2017-03-30 19:00 | NUR ---
RN NOTES PATIENT STABLE AT THIS TIME, NO ACUTE DISTRESS, ENDORSED ONCOMING NURSE FOR KIARA.
--- NOTE | 2017-03-30 19:25 | NUR ---
MS RN OPENING NOTES: PT A/OX 1-2. PT ON ROOM AIR AND TOLERATING WELL. NO IV NOTED AT THIS TIME. PT TO BE TRANSFERRED TO GPS. CALL LIGHT WITHIN PT'S REACH. BED KEPT IN LOW, LOCKED POSITION, AND SIDE RAILS X 2 UP. WILL CONTINUE TO MONITOR PT.
--- NOTE | 2017-03-30 20:31 | NUR ---
MS RN NOTES: GAVE REPORT TO CARTER GONZALEZ PT TO GO TO ROOM 216-B ; AWAITING FOR TRANSFER.
--- NOTE | 2017-03-30 20:54 | NUR ---
MS RN NOTES: PT LEFT FLOOR IN STABLE CONDITION WITH RN AND WHOLESALE AGRONOMIST TO 216-B.
[2017-03-31] MEDS ORDERED: ACET-868 PO (07:56)
[2017-03-31] MEDS ORDERED: DOXA4TAB3 PO (07:56)
[2017-03-31] MEDS ORDERED: IPRA3AMP IH (07:56)
[2017-03-31] MEDS ORDERED: THIA100T74 PO (07:56)
[2017-03-31] MEDS ORDERED: [UNRECOGNIZED DRUG - CODE] PO ×3 (07:56)
[2017-03-31] MEDS ORDERED: PANT40TA4 PO (07:56)
[2017-03-31] MEDS ORDERED: METR500T4 PO (07:56)
[2017-03-31] MEDS ORDERED: LORA0.5T PO (07:56)
[2017-03-31] MEDS ORDERED: ENOX40DI SQ (07:56)
[2017-03-31] MEDS ORDERED: MAGN400O6 PO (07:56)
[2017-03-31] MEDS ORDERED: MAG30ORA PO (07:56)
[2017-03-31] MEDS ORDERED: ALLA266C2 TP (07:56)
[2017-03-31] MEDS ORDERED: GABA-534 PO (07:56)
[2017-03-31] MEDS ORDERED: TEMA7.5C12 PO (07:56)
[2017-03-31] MEDS ORDERED: POTA20PA34 PO (07:56)
[2017-03-31] MEDS ORDERED: BENZ0.5T3 PO (07:56)
== END 2017-03-30 20:51 | DRG 177 ==
LOC: ER 14:04 → TELE 16:52 → MED 17:56 → TELE 18:24 → MED 03-18 12:16
PROVIDERS: ADMIT Nurse Practitioner Acute Care; ATTEND Nurse Practitioner Acute Care
DX: J69.0 Pneumonitis due to inhalation of food and vomit (principal); N17.0 Acute kidney failure with tubular necrosis; G92 Toxic encephalopathy; A52.17 General paresis; F10.231 Alcohol dependence with withdrawal delirium; F10.259 Alcohol dependence with alcohol-induced psychotic disorder, unspecified; E87.2 Acidosis; F19.20 Other psychoactive substance dependence, uncomplicated; F10.288 Alcohol dependence with other alcohol-induced disorder; F17.200 Nicotine dependence, unspecified, uncomplicated; Y90.9 Presence of alcohol in blood, level not specified; N40.0 Benign prostatic hyperplasia without lower urinary tract symptoms; Z79.899 Other long term (current) drug therapy; Z86.19 Personal history of other infectious and parasitic diseases; F32.9 Major depressive disorder, single episode, unspecified; G31.2 Degeneration of nervous system due to alcohol; Y90.0 Blood alcohol level of less than 20 mg/100 ml; B34.9 Viral infection, unspecified; F02.80 Dementia in other diseases classified elsewhere, unspecified severity, without behavioral disturbance, psychotic disturbance, mood disturbance, and anxiety; Z96.641 Presence of right artificial hip joint
CPT/HCPCS: 31720; 36415; 36600; 70450-TC; 71045-TC; 80048-TC; 80053-TC; 80076-TC; 80305; 81000-TC; 82140-TC; 82803-TC; 82962-TC; 83605-TC; 83735-TC; 84100-TC; 84443-TC; 84484-TC; 85025-TC; 85652-TC; 85730-TC; 86592; 87040-TC; 87070-TC; 87081-TC; 87086-TC; 87400; 89051-TC; 92526; 92611-TC; 93307-TC; 94799-TC; 97110-TC; 97112-TC; 97530-TC; A4216; A4606; A9563; G0480; J0456; J0696; J1630; J1650; J1956; J2060; J2310; J3411; J3480; J3490; J7030; J7040; J7042; J7060; J7070; Z7610

== ENCOUNTER 2017-03-30 20:53 | Inpatient (IN) | payer MEDICARE, BC ==
[~2017-03-30] VITALS: Ht 172.7 cm; Wt 47.2 kg
[~2017-03-30 20:53] MED LIST: ALBU2.5V13 NEB; BENZ1TAB7 PO; BUPR2TAB3 SL; BUPR8TAB4 SL; CHLO25CA10 PO; DOXA8TAB79 PO; FOLI1TAB16 PO; GABA300C PO; LORA0.5T PO; PANT40TA2 PO; RISP0.5T8 PO; THEANINE PO; THIA100T13 PO; VALA100026 PO
[2017-03-30] MEDS ORDERED: MAGNESIUM HYDROXIDE 30 ML UDC PO PRN (21:00)
[2017-03-30] MEDS ORDERED: LORAZEPAM 0.5 MG TABLET PO PRN (21:00)
[2017-03-30] MEDS ORDERED: MAG HYDROX/AL HYDROX/SIMETH 30 ML UDC PO PRN (21:00)
[2017-03-31 01:01] VITALS: BP 118/62
--- NOTE | 2017-03-31 01:51 | NUR ---
GPS RN NOTES: ADMITTED THIS 76 Y/O, MALE, FROM MED SURG. PATIENT ADMITTED ON 5150 FOR GD. PER HOLD PATIENT IS CONFUSED, DISORGANIZED, AGITATED, UNABLE TO PROVIDE FOOD AND CUSTODIAL. UPON FACE TO FACE ASSESSMENT, PATIENT IS ALERT AND ORIENTED X1, CONFUSED, ANXIOUS, AND DISORGANIZED. V/S WNL. RESPIRATION EVEN AND UNLABORED. NO SOB. NO COMPLAIN OF PAIN/DISCOMFORT AT THIS TIME. PATIENT IS UNDER THE PSYCHIATRIC CARE OF DR. REYNAGA AND UNDER THE MEDICAL CARE OF DR. DAVIS AND NOTIFIED TO RECONCILE PATIENT MEDICATIONS. SKIN ASSESSMENT DONE. NOTED RIGHT AND LOWER LEG SCAB, REDNESS ON ABDOMEN. BELONGINGS INVENTORIED AND CHECKED FOR CONTRABAND. NO CONTRABAND FOUND. MRSA SWAB DONE. ALL NEEDS ATTENDED AND ANTICIPATED. WILL CONTINUE MONITORING [id number] FOR SAFETY AND BEHAVIOR.
[2017-03-31] MEDS ORDERED: ALBUTEROL FS 2.5 MG/0.5 ML VIAL.NEB NEB PRN (05:30)
[2017-03-31] MEDS ORDERED: METRONIDAZOLE 500 MG TABLET ONE (06:20)
[2017-03-31] MEDS: METRONIDAZOLE 250 MG TABLET PO SCH ×2 (06:27→12:07)
[2017-03-31 07:53] LABS: BASOPHILS % (AUTO) 0.3 % (0.0-2.0); EOSINOPHILS # (AUTO) 0.1 /CMM (0.0-0.7); EOSINOPHILS % (AUTO) 1.7 % (0.0-6.0); HEMATOCRIT 42 % (39-51); HEMOGLOBIN 13.8 g/dL (13.5-17.5); LYMPHOCYTES # (AUTO) 1.8 /CMM (0.8-4.8); LYMPHOCYTES % (AUTO) 26.4 % (20.0-44.0); MEAN CORPUSCULAR HEMOGLOBIN 28 PG (26.0-33.0); MEAN CORPUSCULAR HGB CONC 33 g/dl (31.0-36.0); MEAN CORPUSCULAR VOLUME 85 fL (80-96); MONOCYTES # (AUTO) 0.7 /CMM (0.1-1.30); MONOCYTES % (AUTO) 10.1 % (2.0-12.0); NEUTROPHILS # (AUTO) 4.1 /CMM (1.8-8.9); NEUTROPHILS % (AUTO) 61.5 % (43.0-81.0); PLATELET COUNT (AUTO) 402 /CMM (150-450); RDW COEFFICIENT OF VARIATION 21.5 (11.5-15.0); WHITE BLOOD COUNT (AUTO) 6.7 K/uL (4.3-11.0)
[2017-03-31] MEDS ORDERED: ALLA266C2 TP (07:56)
[2017-03-31] MEDS ORDERED: GABA-534 PO (07:56)
[2017-03-31] MEDS ORDERED: DOXA4TAB3 PO (07:56)
[2017-03-31] MEDS ORDERED: BENZ0.5T3 PO (07:56)
[2017-03-31] MEDS ORDERED: TEMA7.5C12 PO (07:56)
[2017-03-31] MEDS ORDERED: PANT40TA4 PO (07:56)
[2017-03-31] MEDS ORDERED: METR500T4 PO (07:56)
[2017-03-31] MEDS ORDERED: [UNRECOGNIZED DRUG - CODE] PO ×3 (07:56)
[2017-03-31] MEDS ORDERED: LORA0.5T PO (07:56)
[2017-03-31] MEDS ORDERED: THIA100T74 PO (07:56)
[2017-03-31] MEDS ORDERED: IPRA3AMP IH (07:56)
[2017-03-31] MEDS ORDERED: ACET-868 PO (07:56)
[2017-03-31] MEDS ORDERED: MAGN400O6 PO (07:56)
[2017-03-31] MEDS ORDERED: POTA20PA34 PO (07:56)
[2017-03-31] MEDS ORDERED: MAG30ORA PO (07:56)
[2017-03-31] MEDS ORDERED: ENOX40DI SQ (07:56)
[2017-03-31 08:00] VITALS: BP 128/72
[2017-03-31 08:13] LABS: CHOLESTEROL 137 mg/dL (<200); HDL CHOLESTEROL 29 mg/dL (40-60); LDL 84 mg/dL (0-99); TRIGLYCERIDES 97 mg/dL (30-150)
[2017-03-31] MEDS: FOLIC ACID 1 MG TABLET PO SCH (08:23)
[2017-03-31] MEDS: Z GUARD REMEDY 2 OZ OINT TP SCH ×2 (08:23→17:20)
[2017-03-31] MEDS: THIAMINE HCL 100 MG TABLET PO SCH (08:23)
[2017-03-31] MEDS: PANTOPRAZOLE 40 MG TABLET.DR PO SCH (08:24)
[2017-03-31] MEDS ORDERED: BENZTROPINE MESYLATE (1 MG) 1 MG TABLET PO SCH (09:00)
[2017-03-31] MEDS ORDERED: GABAPENTIN 300 MG CAPSULE PO SCH (09:00)
[2017-03-31] MEDS ORDERED: VALACYCLOVIR HCL 500 MG TABLET PO SCH (09:00)
[2017-03-31 10:49] LABS: ALANINE AMINOTRANSFERASE 19 U/L (12-78); ALBUMIN 2.4 g/dL (3.4-5.0); ALKALINE PHOSPHATASE 38 U/L (46-116); ASPARTATE AMINOTRANSFERASE 33 U/L (15-37); BILIRUBIN,TOTAL 0.4 mg/dL (0.2-1.0); CALCIUM, SERUM 8.7 mg/dL (8.5-10.1); CARBON DIOXIDE 24 mmol/L (21-32); CHLORIDE 106 mmol/L (98-107); GLUCOSE 90 mg/dL (74-106); POTASSIUM 4.4 mmol/L (3.5-5.1); SODIUM SERUM 141 mmol/L (136-145); TOTAL PROTEIN, SERUM 6.9 g/dL (6.4-8.2); UREA NITROGEN, BLOOD 7 mg/dL (7-18)
[2017-03-31] MEDS: GABAPENTIN 300 MG CAPSULE PO SCH ×2 (12:07→17:20)
[2017-03-31] MEDS: risperiDONE 0.25 MG TABLET PO SCH ×2 (12:07→17:20)
[2017-03-31] MEDS: BENZTROPINE MESYLATE (1 MG) 1 MG TABLET PO SCH ×2 (12:08→17:19)
--- NOTE | 2017-03-31 15:11 | NUR ---
Initial Discharge Note: Patient lives in house at [address] [place] [address] / [phone]. Patient lives there alone. Patient does not wihs to return there. When patient was on medical floor, patient was placed into a SNF [facility] by case management. SW spoke with patient's daughter, Fe [phone], who confirmed this. SW had a long conversation with Fe to obtain background information on patient. SW to facilitate safe and proper discharge. SW to contact SNF and confirm placement.
[2017-03-31 15:45] VITALS: BP 112/70
--- NOTE | 2017-03-31 19:00 | NUR ---
GPS/RN-NOTES PATIENT IN THE UNIT AND REQUESTING THE CHILD CARE EDUCATION COORDINATOR TO CALL MD REGARDING MIRAPEX MEDICATIONS. PER PATIENT WAS TAKING MIRAPEX FOR RESTLESSNESS LEGS BEFORE .CALLED [facility] /PER THE STRANDING MACHINE OPERATOR WILL PAGE DR. DAVIS RN OR LVN FOR ADILENE. STILL AWAITING FOR CALL BACK. WILL ENDORSE TO NIGHT NURSE FOR F/U AND CONTINUITY OF CARE.
[2017-03-31 20:00] VITALS: BP 117/76
[2017-03-31] MEDS: ENOXAPARIN SODIUM 40 MG/0.4 ML DISP.SYRIN SQ SCH (21:11)
[2017-03-31] MEDS: DOXAZOSIN MESYLATE (4 MG) 4 MG TABLET PO SCH (21:13)
[2017-03-31] MEDS: TEMAZEPAM 7.5 MG CAPSULE PO PRN (21:47)
[2017-04-01] MEDS: risperiDONE 0.25 MG TABLET PO SCH ×3 (08:16→17:05)
[2017-04-01] MEDS: PANTOPRAZOLE 40 MG TABLET.DR PO SCH (08:17)
[2017-04-01 08:33] VITALS: BP 157/64
[2017-04-01] MEDS: THIAMINE HCL 100 MG TABLET PO SCH (08:42)
[2017-04-01] MEDS: BENZTROPINE MESYLATE (1 MG) 1 MG TABLET PO SCH ×3 (08:42→16:50)
[2017-04-01] MEDS: GABAPENTIN 300 MG CAPSULE PO SCH ×3 (08:42→16:51)
[2017-04-01] MEDS: FOLIC ACID 1 MG TABLET PO SCH (08:43)
[2017-04-01] MEDS: VALACYCLOVIR HCL 500 MG TABLET PO SCH (08:43)
[2017-04-01] MEDS: Z GUARD REMEDY 2 OZ OINT TP SCH ×2 (08:44→16:52)
[2017-04-01 16:00] VITALS: BP 127/72
[2017-04-01 20:00] VITALS: BP 130/87
[2017-04-01] MEDS: ENOXAPARIN SODIUM 40 MG/0.4 ML DISP.SYRIN SQ SCH (21:54)
[2017-04-01] MEDS: TEMAZEPAM 7.5 MG CAPSULE PO PRN (21:54)
[2017-04-01] MEDS: DOXAZOSIN MESYLATE (4 MG) 4 MG TABLET PO SCH (21:54)
[2017-04-02 08:00] VITALS: BP 154/58
[2017-04-02] MEDS: BENZTROPINE MESYLATE (1 MG) 1 MG TABLET PO SCH ×3 (08:42→16:04)
[2017-04-02] MEDS: THIAMINE HCL 100 MG TABLET PO SCH (08:43)
[2017-04-02] MEDS: risperiDONE 0.25 MG TABLET PO SCH ×3 (08:43→18:01)
[2017-04-02] MEDS: FOLIC ACID 1 MG TABLET PO SCH (08:43)
[2017-04-02] MEDS: PANTOPRAZOLE 40 MG TABLET.DR PO SCH (08:43)
[2017-04-02] MEDS: VALACYCLOVIR HCL 500 MG TABLET PO SCH (08:43)
[2017-04-02] MEDS: GABAPENTIN 300 MG CAPSULE PO SCH ×3 (08:43→16:04)
[2017-04-02] MEDS: Z GUARD REMEDY 2 OZ OINT TP SCH ×2 (08:45→16:05)
[2017-04-02 16:00] VITALS: BP 123/87
[2017-04-02 20:14] VITALS: BP 106/62
[2017-04-02] MEDS: ENOXAPARIN SODIUM 40 MG/0.4 ML DISP.SYRIN SQ SCH (21:28)
[2017-04-02] MEDS: DOXAZOSIN MESYLATE (4 MG) 4 MG TABLET PO SCH (21:29)
[2017-04-03 08:00] VITALS: BP 133/67
[2017-04-03] MEDS: VALACYCLOVIR HCL 500 MG TABLET PO SCH (08:46)
[2017-04-03] MEDS: FOLIC ACID 1 MG TABLET PO SCH (08:47)
[2017-04-03] MEDS: PANTOPRAZOLE 40 MG TABLET.DR PO SCH (08:47)
[2017-04-03] MEDS: THIAMINE HCL 100 MG TABLET PO SCH (08:47)
[2017-04-03] MEDS: risperiDONE 0.25 MG TABLET PO SCH ×3 (08:47→17:43)
[2017-04-03] MEDS: GABAPENTIN 300 MG CAPSULE PO SCH ×3 (08:47→16:22)
[2017-04-03] MEDS: BENZTROPINE MESYLATE (1 MG) 1 MG TABLET PO SCH ×3 (08:47→16:22)
[2017-04-03] MEDS: Z GUARD REMEDY 2 OZ OINT TP SCH ×2 (08:50→16:28)
--- NOTE | 2017-04-03 09:37 | NUR ---
Discharge Planning: DAVID called [facility], , and spoke with business support manager Jami. DAVID was informed that pharmacy operations coordinator, Remedios, was in her morning meeting. DAVID left a message with Jami. DAVID was calling to verify patient's acceptance at facility.
--- NOTE | 2017-04-03 11:56 | NUR ---
Discharge Planning: DAVID spoke with Remedios, marketing project coordinator at [facility], . Remedios stated that she would like DAVID to fax updated clinicals and also informed DAVID that they will assess patient before discharge. DAVID faxed clinicals to fax #[phone].
[2017-04-03] MEDS: ACETAMINOPHEN 325 MG TABLET PO PRN (12:22)
--- NOTE | 2017-04-03 12:22 | NUR ---
[id number]: GAVE TYLENOL 650 MG PO DUE TO 5/10 GENERALIZED PAIN UPON PT REQUEST AND WILL CONTINUE TO MONITOR FOR EFFECTIVENESS OF MEDICATION
--- NOTE | 2017-04-03 13:27 | NUR ---
Discharge Planning: Patient was assessed by Alyson Medina/ [phone] from [facility]. Alyson stated that patient seems like a good fit for the facility and that he is accepted.
--- NOTE | 2017-04-03 13:56 | NUR ---
Discharge Planning: DAVID spoke with patient's daughter, Fe [phone]. DAVID provided updates for patient's daughter and informed her that he was assessed by the SNF [facility]. Fe was pleased with this information.
--- NOTE | 2017-04-03 15:15 | NUR ---
GPS/RN NOTE LNA JACI GAVE NEW VERBAL ORDER FOR REGULAR DIET. THE ORDER READ BACK, VERIFIED. NOTED AND CARRIED OUT.
[2017-04-03 16:00] VITALS: BP 121/77
[2017-04-03 20:13] VITALS: BP 116/62
[2017-04-03] MEDS: DOXAZOSIN MESYLATE (4 MG) 4 MG TABLET PO SCH (21:29)
[2017-04-03] MEDS: ENOXAPARIN SODIUM 40 MG/0.4 ML DISP.SYRIN SQ SCH (21:32)
[2017-04-04] MEDS: ACETAMINOPHEN 325 MG TABLET PO PRN ×2 (01:15→18:56)
[2017-04-04] MEDS: TEMAZEPAM 7.5 MG CAPSULE PO PRN ×2 (01:22→23:20)
[2017-04-04 08:00] VITALS: BP 106/55
[2017-04-04] MEDS: risperiDONE 0.25 MG TABLET PO SCH ×3 (08:12→17:22)
[2017-04-04] MEDS: Z GUARD REMEDY 2 OZ OINT TP SCH ×2 (08:12→17:23)
[2017-04-04] MEDS: BENZTROPINE MESYLATE (1 MG) 1 MG TABLET PO SCH ×3 (08:13→17:22)
[2017-04-04] MEDS: THIAMINE HCL 100 MG TABLET PO SCH (08:13)
[2017-04-04] MEDS: VALACYCLOVIR HCL 500 MG TABLET PO SCH (08:13)
[2017-04-04] MEDS: GABAPENTIN 300 MG CAPSULE PO SCH ×3 (08:13→17:22)
[2017-04-04] MEDS: FOLIC ACID 1 MG TABLET PO SCH (08:13)
[2017-04-04] MEDS: PANTOPRAZOLE 40 MG TABLET.DR PO SCH (08:14)
--- NOTE | 2017-04-04 11:17 | NUR ---
Discharge Planning: SW informed Alyson Medina/ [phone] from [facility] that patient will be discharging on , as per psychiatrist.
[2017-04-04 16:22] VITALS: BP 143/93
--- NOTE | 2017-04-04 18:56 | NUR ---
[id number]: GAVE TYLENOL 650 MG PO DUE TO GENERALIZED PAIN 5/10 UPON PT REQUEST AND WILL CONTINUE TO MONITOR FOR EFFECTIVENESS OF MEDICATION
[2017-04-04 20:05] VITALS: BP 103/62
[2017-04-04] MEDS: LIDOCAINE 5% (PATCH) 1 EA PATCH TP SCH (21:12)
[2017-04-04] MEDS: ENOXAPARIN SODIUM 40 MG/0.4 ML DISP.SYRIN SQ SCH (21:15)
[2017-04-04] MEDS: DOXAZOSIN MESYLATE (4 MG) 4 MG TABLET PO SCH (22:00)
[2017-04-05] MEDS: ACETAMINOPHEN 325 MG TABLET PO PRN ×2 (05:33→13:20)
[2017-04-05 07:53] VITALS: BP 147/74
[2017-04-05] MEDS: risperiDONE 0.25 MG TABLET PO SCH ×3 (08:00→18:42)
[2017-04-05] MEDS: GABAPENTIN 300 MG CAPSULE PO SCH ×3 (09:00→17:30)
[2017-04-05] MEDS: BENZTROPINE MESYLATE (1 MG) 1 MG TABLET PO SCH ×3 (09:00→17:30)
[2017-04-05] MEDS: Z GUARD REMEDY 2 OZ OINT TP SCH ×2 (09:00→17:00)
[2017-04-05] MEDS: FOLIC ACID 1 MG TABLET PO SCH (09:00)
[2017-04-05] MEDS: THIAMINE HCL 100 MG TABLET PO SCH (09:00)
[2017-04-05] MEDS: PANTOPRAZOLE 40 MG TABLET.DR PO SCH (09:00)
[2017-04-05] MEDS: VALACYCLOVIR HCL 500 MG TABLET PO SCH (09:00)
[2017-04-05 16:05] VITALS: BP 126/66
[2017-04-05 20:20] VITALS: BP 133/61
[2017-04-05] MEDS: ENOXAPARIN SODIUM 40 MG/0.4 ML DISP.SYRIN SQ SCH (21:22)
[2017-04-05] MEDS: LIDOCAINE 5% (PATCH) 1 EA PATCH TP SCH (21:23)
[2017-04-05] MEDS: DOXAZOSIN MESYLATE (4 MG) 4 MG TABLET PO SCH (21:24)
[2017-04-05] MEDS: TEMAZEPAM 7.5 MG CAPSULE PO PRN (22:30)
[2017-04-06 08:00] VITALS: BP 123/67
[2017-04-06] MEDS: THIAMINE HCL 100 MG TABLET PO SCH (08:10)
[2017-04-06] MEDS: risperiDONE 0.25 MG TABLET PO SCH ×2 (08:10→12:26)
[2017-04-06] MEDS: FOLIC ACID 1 MG TABLET PO SCH (08:10)
[2017-04-06] MEDS: GABAPENTIN 300 MG CAPSULE PO SCH ×2 (08:10→12:26)
[2017-04-06] MEDS: VALACYCLOVIR HCL 500 MG TABLET PO SCH (08:10)
[2017-04-06] MEDS: PANTOPRAZOLE 40 MG TABLET.DR PO SCH (08:10)
[2017-04-06] MEDS: BENZTROPINE MESYLATE (1 MG) 1 MG TABLET PO SCH ×2 (08:10→12:26)
--- NOTE | 2017-04-06 09:11 | NUR ---
DR. REYNAGA GAVE AN ORDER TO D/C HOLD AND D/C TO [facility] AND TO CONTINUE SAME MEDS INCLUDING PRN AND TO FOLLOW UP WITH PSYCH AND MEDICAL DOCTORS. PT. WITHOUT DISTRESS, DENIES SUICIDAL AND HOMICIDAL, BELONGINGS READY AND DISCHARGE PAPERS PREPARED.
[2017-04-06] MEDS: Z GUARD REMEDY 2 OZ OINT TP SCH (09:15)
[2017-04-06 09:29] LABS: BASOPHILS # (AUTO) 0.1 /CMM (0.0-0.2); BASOPHILS % (AUTO) 1.6 % (0.0-2.0); EOSINOPHILS # (AUTO) 0.1 /CMM (0.0-0.7); HEMATOCRIT 42 % (39-51); HEMOGLOBIN 13.9 g/dL (13.5-17.5); LYMPHOCYTES # (AUTO) 2.1 /CMM (0.8-4.8); LYMPHOCYTES % (AUTO) 35.4 % (20.0-44.0); MEAN CORPUSCULAR HEMOGLOBIN 28 PG (26.0-33.0); MEAN CORPUSCULAR HGB CONC 33 g/dl (31.0-36.0); MEAN CORPUSCULAR VOLUME 84 fL (80-96); MONOCYTES # (AUTO) 0.5 /CMM (0.1-1.30); MONOCYTES % (AUTO) 8.8 % (2.0-12.0); NEUTROPHILS % (AUTO) 52.2 % (43.0-81.0); PLATELET COUNT (AUTO) 300 /CMM (150-450); RDW COEFFICIENT OF VARIATION 21.3 (11.5-15.0); RED BLOOD CELL COUNT(AUTO) 5.04 MIL/uL (4.5-6.0); WHITE BLOOD COUNT (AUTO) 5.8 K/uL (4.3-11.0)
[2017-04-06 09:45] LABS: CALCIUM, SERUM 9.4 mg/dL (8.5-10.1); CARBON DIOXIDE 26 mmol/L (21-32); CHLORIDE 105 mmol/L (98-107); CREATININE 1.1 mg/dL (0.6-1.3); GLUCOSE 151 mg/dL (74-106); POTASSIUM 3.9 mmol/L (3.5-5.1); SODIUM SERUM 140 mmol/L (136-145); UREA NITROGEN, BLOOD 9 mg/dL (7-18)
[2017-04-06] MEDS: ACETAMINOPHEN 325 MG TABLET PO PRN (11:08)
--- NOTE | 2017-04-06 11:31 | NUR ---
Discharge Note: Patient will be discharged to [facility] [place] [address] [place] [address] / [phone] via ambulance transportation arranged by clinical social worker, trip #[id number]. Patients daughter Fe [phone] is aware of discharge and is in agreement with the plan. DAVID faxed updated progress notes to Remedios in admissions, fax # [phone]. Upon discharge, patient is calm and cooperative. Patient denies suicidal and homicidal ideation. Patient denies visual and auditory hallucinations. At the facility, patient will be under the care of experimental outboard motors mechanic, Dr. Leonardo [address] [facility] [address] . Patient will also be followed by psychiatrist Dr. Vegas [address] [place] [address], [place] [address] [phone].
--- NOTE | 2017-04-06 13:51 | NUR ---
RADHA PERAZA NOTIFIED ABOUT THE DISCHARGE AND SAID OK TO D/C PT. TO [facility] AND TO CONTINUE SAME MEDS INCLUDING PRN. PT. SIGNED THE DISCHARGE PAPERS, BELONGINGS READY AND PICTURES TAKEN FOR THE SKIN ISSUES.
--- NOTE | 2017-04-06 14:21 | NUR ---
REPORT GIVEN TO SB OVER THE FACILITY.
--- NOTE | 2017-04-06 15:15 | NUR ---
Pt. left the unit via ambulance and transported via a gurney with belongings. Left without distress and on stable condition. V/S taken: BP 127/58, Temp. 97.8, RR 19, SC 60 and oxygen sat 100%.
== END 2017-04-06 15:15 | DRG 885 ==
LOC: GPS 20:53
PROVIDERS: ADMIT Psychiatry & Neurology Psychosomatic Medicine; ATTEND Psychiatry & Neurology Psychosomatic Medicine
DX: F29 Unspecified psychosis not due to a substance or known physiological condition (principal); F03.91 Unspecified dementia, unspecified severity, with behavioral disturbance; F10.959 Alcohol use, unspecified with alcohol-induced psychotic disorder, unspecified; F32.9 Major depressive disorder, single episode, unspecified; Z73.6 Limitation of activities due to disability; N40.0 Benign prostatic hyperplasia without lower urinary tract symptoms; G89.29 Other chronic pain; F19.959 Other psychoactive substance use, unspecified with psychoactive substance-induced psychotic disorder, unspecified; Y90.9 Presence of alcohol in blood, level not specified; Z96.641 Presence of right artificial hip joint; B00.9 Herpesviral infection, unspecified
CPT/HCPCS: 36415; 80048-TC; 80053-TC; 80061-TC; 85025-TC; 87081-TC; 97116-TC; 97530-TC; J1650

== ENCOUNTER 2018-02-06 13:12 | Inpatient (IN) | payer MEDICARE, BC ==
[~2018-02-06] VITALS: Ht 172.7 cm; Wt 76.7 kg
[~2018-02-06 13:12] MED LIST changes: +ACET-868 PO; -ALBU2.5V13 NEB; +ASCO500T9 PO; +ASPI-1169 PO; -BENZ1TAB7 PO; -BUPR2TAB3 SL; -BUPR8TAB4 SL; -CHLO25CA10 PO; +CHOL100044 PO; +DOXA4TAB3 PO; -DOXA8TAB79 PO; -FOLI1TAB16 PO; -GABA300C PO; -LORA0.5T PO; -PANT40TA2 PO; -RISP0.5T8 PO; +TEST200V3 IM; -THEANINE PO; -THIA100T13 PO; +THIA100T74 PO; +TRAM50TA2 PO; -VALA100026 PO; +VITA400C68 PO
--- NOTE | 2018-02-06 13:30 | NUR ---
PT BIBSELF C/O COUGHING X 2 WEEKS. PT DRANK ALCOHOL 3 HOURS AGO. PT IN BED 6. WILL CONTINUE TO MONITOR.
--- NOTE | 2018-02-06 13:50 | NUR ---
BLOOD DRAWN AND GIVEN TO LAB
--- NOTE | 2018-02-06 13:53 | NUR ---
RADIOLOGY AT BEDSIDE FOR XRAY
[2018-02-06 13:59] LABS: BASOPHILS # (AUTO) 0.1 /CMM (0.0-0.2); BASOPHILS % (AUTO) 0.9 % (0.0-2.0); EOSINOPHILS % (AUTO) 0.5 % (0.0-6.0); HEMATOCRIT 43 % (39-51); HEMOGLOBIN 13.7 g/dL (13.5-17.5); LYMPHOCYTES # (AUTO) 1.2 /CMM (0.8-4.8); LYMPHOCYTES % (AUTO) 19.2 % (20.0-44.0); MEAN CORPUSCULAR HGB CONC 32 g/dl (31.0-36.0); MEAN CORPUSCULAR VOLUME 81 fL (80-96); MONOCYTES # (AUTO) 0.6 /CMM (0.1-1.30); MONOCYTES % (AUTO) 9.4 % (2.0-12.0); NEUTROPHILS # (AUTO) 4.5 /CMM (1.8-8.9); PLATELET COUNT (AUTO) 161 /CMM (150-450); RED BLOOD CELL COUNT(AUTO) 5.24 MIL/uL (4.5-6.0); WHITE BLOOD COUNT (AUTO) 6.5 K/uL (4.3-11.0)
[2018-02-06 14:19] LABS: CALCIUM, SERUM 8.3 mg/dL (8.5-10.1); CARBON DIOXIDE 22 mmol/L (21-32); CHLORIDE 109 mmol/L (98-107); GLUCOSE 128 mg/dL (74-106); POTASSIUM 3.7 mmol/L (3.5-5.1); SODIUM SERUM 144 mmol/L (136-145); UREA NITROGEN, BLOOD 6 mg/dL (7-18)
[2018-02-06] MEDS ORDERED: LORAZEPAM 1 MG TABLET ONE (14:24)
[2018-02-06] MEDS ORDERED: LORAZEPAM 1 MG TABLET PO ONE (14:30)
[2018-02-06] MEDS ORDERED: IV NS 0.9% 1,000 ML BAG IV ONE (14:30)
--- NOTE | 2018-02-06 14:31 | NUR ---
TECH AT BEDSIDE FOR EKG
[2018-02-06 14:32] LABS: ALBUMIN 3.1 g/dL (3.4-5.0); ALKALINE PHOSPHATASE 70 U/L (46-116); ASPARTATE AMINOTRANSFERASE 1360 U/L (15-37); TOTAL PROTEIN, SERUM 6.6 g/dL (6.4-8.2)
[2018-02-06 14:43] LABS: ALANINE AMINOTRANSFERASE 1422 U/L (12-78)
--- NOTE | 2018-02-06 15:20 | NUR ---
REPORT GIVEN TO LISA RICE FOR KIARA
--- NOTE | 2018-02-06 15:33 | NUR ---
CALLED [facility] DENTAL PATIENT COORDINATOR WAS PAGED.
--- NOTE | 2018-02-06 15:50 | NUR ---
PHLEB AT BEDSIDE FOR LAB DRAW
[2018-02-06] MEDS ORDERED: MAGNESIUM HYDROXIDE 30 ML UDC PO PRN (16:00)
[2018-02-06] MEDS ORDERED: ONDANSETRON HCL/PF 4 MG/2 ML VIAL IVP PRN (16:00)
[2018-02-06] MEDS ORDERED: MAG HYDROX/AL HYDROX/SIMETH 30 ML UDC PO PRN (16:00)
[2018-02-06] MEDS ORDERED: Z GUARD REMEDY 2 OZ OINT TP PRN (16:00)
[2018-02-06 16:15] LABS: BILIRUBIN,DIRECT 0.4 mg/dL (0.0-0.2)
[2018-02-06 16:38] VITALS: BP 121/81
[2018-02-06] MEDS: IV NS 0.9% 1,000 ML IV PRN (16:42)
[2018-02-06 17:05] LABS: CREATINE KINASE, TOTAL 393 U/L (39-308); SALICYLATE 0.8 mg/dL (2.8-20.0)
[2018-02-06] MEDS: LORAZEPAM 1 MG TABLET PO PRN ×2 (17:14→23:43)
--- NOTE | 2018-02-06 17:30 | NUR ---
PHLEBOTOMIST LAB ASSISTANT NOTE RECEIVED PATIENT FROM ER WITH DX TRANSAMINITIS UNDER CARE DR DAVIS . ALERT ORIENTED BUT VERY ANXIOUS AND AGITATED , VS TAKEN NEW HL ON RT HAND INSERTED IVF STARTED ORDERED ECHO DONE ORDERED , HOSPITAL,ORIENTATION DONE , VS TAKEN, BELONGING CHECKED , PLAN OF CARE DISCUSSED WITH PATIENT, BED IN LOWEST ABD LOCKED POSITION
[2018-02-06] MEDS: Thiamine 100 MG in IV D5W 50 ML IV SCH (17:32)
--- NOTE | 2018-02-06 18:00 | NUR ---
CHANNEL MACHINE OPERATOR NOTE PATIENT VERY ANXIOUS AND AGITATED DR MONAE NOTIFIED OK TO GIVE ATIVAN ,ORDER CARRIED OUT ALSO NOTIFIED TO THAT LACTIC ACID 4. CONT ON IVF ORDERED, NOTIFIED TO THAT PATENT HAS PAIN IN BOTH LEGS ,OK TO GIVE TRAMADOL, ORDER CARRIED OUT
[2018-02-06] MEDS: Folic acid 1 MG in IV D5W 50 ML IV SCH (18:17)
[2018-02-06] MEDS: TRAMADOL HCL 50 MG TABLET PO PRN (18:20)
--- NOTE | 2018-02-06 18:22 | NUR ---
LISA MADDEN AWARE. Addendum: 02/06/18 at 1822 by FLAKO SHERIDAN RT Amended: Links added.
--- NOTE | 2018-02-06 18:24 | NUR ---
SHUTTLE SPOTTER NOTE ON IVF ORDERED AND PATINT REFUSED EKG ,WILL F\U
--- NOTE | 2018-02-06 19:03 | NUR ---
FIREWORKS ASSEMBLER NOTE C\O COUGH AND NOTED WHEEZING UPON AUSCULTATION , SPOKE WITH DR DAVIS NOTIFIED ABOUT COUGH AND ORDERED BREATHING TX AND ROBITUSSIN ORDER CARRIED OUT
[2018-02-06] MEDS: GUAIFENESIN/D-METHORPHAN HB 5 ML UDC PO PRN ×2 (19:11→23:38)
[2018-02-06] MEDS ORDERED: ALBUTEROL FS 2.5 MG/3 ML VIAL.NEB NEB SCH (19:30)
[2018-02-06] MEDS: IPRATROPIUM NEB FS 0.5 MG/2.5 ML AMPUL.NEB NEB SCH ×2 (19:45→21:00)
[2018-02-06 20:00] VITALS: BP 117/52
[2018-02-06] MEDS: ZOLPIDEM TARTRATE 5 MG TABLET PO PRN (20:27)
[2018-02-06] MEDS ORDERED: TRAMADOL HCL 50 MG TABLET PO PRN (23:00)
[2018-02-06] MEDS: ACETAMINOPHEN 325 MG TABLET PO PRN (23:39)
[2018-02-07] VITALS: BP 136/58
[2018-02-07] MEDS: TRAMADOL HCL 50 MG TABLET PO PRN (02:23)
[2018-02-07] MEDS: IV NS 0.9% 1,000 ML IV PRN (02:47)
[2018-02-07] MEDS: ALBUTEROL FS 2.5 MG/3 ML VIAL.NEB NEB SCH ×6 (02:51→23:12)
[2018-02-07 04:00] VITALS: BP 123/61
[2018-02-07] MEDS: GUAIFENESIN/D-METHORPHAN HB 5 ML UDC PO PRN (04:36)
[2018-02-07] MEDS: LORAZEPAM 1 MG TABLET PO PRN ×2 (05:55→23:00)
--- NOTE | 2018-02-07 06:32 | NUR ---
RN NOTES PATIENT NOTED WITH COUGH, NON PRODUCTIVE. HEAD OF BED ELEVATED. ROBITUSSIN GIVEN X 3 WITH RELIEF, BREATHING TX ADMINISTERED WITH HELP. ATIVAN GIVEN FOR ANXIETY, AMBIEN FOR SLEEP BOTH NOT EFFECTIVE. PATIENT HAS BEEN AWAKE ALL NIGHT COMPLAINING OF RESTLESS LEGS SYNDROME. BEEN WALKING MANY TIMES IN THE HALLWAY. ASSISTED FOR RISK OF FALL. MD AWARE. WILL ENDORSE TO NEXT SHIFT FOR CONTINUITY OF CARE
[2018-02-07 06:44] LABS: BASOPHILS % (AUTO) 0.3 % (0.0-2.0); EOSINOPHILS % (AUTO) 0.4 % (0.0-6.0); HEMATOCRIT 37 % (39-51); HEMOGLOBIN 11.9 g/dL (13.5-17.5); LYMPHOCYTES # (AUTO) 1.2 /CMM (0.8-4.8); MEAN CORPUSCULAR HGB CONC 32 g/dl (31.0-36.0); MEAN CORPUSCULAR VOLUME 80 fL (80-96); MONOCYTES # (AUTO) 0.6 /CMM (0.1-1.30); MONOCYTES % (AUTO) 9.4 % (2.0-12.0); NEUTROPHILS # (AUTO) 4.1 /CMM (1.8-8.9); NEUTROPHILS % (AUTO) 68.9 % (43.0-81.0); PLATELET COUNT (AUTO) 122 /CMM (150-450); RED BLOOD CELL COUNT(AUTO) 4.63 MIL/uL (4.5-6.0)
[2018-02-07 07:06] LABS: CHOLESTEROL 94 mg/dL (<200); HDL CHOLESTEROL 28 mg/dL (40-60); LDL 58 mg/dL (0-99); THYROID STIMULATING HORMONE 2.311 uIU/mL (0.358-3.74); TRIGLYCERIDES 72 mg/dL (30-150)
[2018-02-07 07:17] LABS: ALANINE AMINOTRANSFERASE 845 U/L (12-78); ALBUMIN 2.6 g/dL (3.4-5.0); ALKALINE PHOSPHATASE 56 U/L (46-116); ASPARTATE AMINOTRANSFERASE 531 U/L (15-37); BILIRUBIN,TOTAL 1.3 mg/dL (0.2-1.0); CALCIUM, SERUM 7.5 mg/dL (8.5-10.1); CARBON DIOXIDE 26 mmol/L (21-32); CHLORIDE 107 mmol/L (98-107); CREATININE 0.9 mg/dL (0.6-1.3); GLUCOSE 90 mg/dL (74-106); MAGNESIUM 1.4 mg/dL (1.8-2.4); PHOSPHORUS 2.5 mg/dL (2.5-4.9); POTASSIUM 3.5 mmol/L (3.5-5.1); SODIUM SERUM 140 mmol/L (136-145); TOTAL PROTEIN, SERUM 5.8 g/dL (6.4-8.2); UREA NITROGEN, BLOOD 6 mg/dL (7-18)
--- NOTE | 2018-02-07 07:30 | NUR ---
RN NOTE RECEIVED PATIENT IN BED, A/O X 2-3, ABLE TO COMMUNICATE WELL, NOT ON ANY FORM OF DISTRESS, BREATHING UNLABORED, ON ROOM AIR, SATING WELL, ON TELEMONITOR SR HR AT 89BPM, IVL ON THE R HAND: INPLACE AND INTACT, FLUSHES WELL, WITH ONGOING IVF OF OF NS AT 125ML/HR. PATIENT AMBULATORY AND ABLE TO FOLLOW COMMANDS, PATIENT ORIENTED TO THE FLOOR, SAFETY MEASURES OBSERVED AND MAINTAINED, SRX2 UP, BED LOW AND LOCKED, BED ALARM ON, CALL LIGHT WITHIN REACH, WILL CONTINUE TO MONITOR PATIENT,
[2018-02-07 08:00] VITALS: BP 138/62
[2018-02-07] MEDS: Magnesium 1GM/D5W 100ML PREMIX 100 ML IV SCH ×4 (08:49→14:10)
[2018-02-07] MEDS: ASCORBIC ACID 500 MG TABLET PO SCH (08:49)
[2018-02-07] MEDS: CARVEDILOL 3.125 MG TABLET PO SCH ×2 (08:51→20:49)
[2018-02-07] MEDS: CHOLECALCIFEROL 1,000 UNIT TABLET (VIT D3) PO SCH (08:52)
[2018-02-07] MEDS ORDERED: ASPIRIN 81 MG TAB.CHEW PO SCH (09:00)
[2018-02-07] MEDS ORDERED: THIAMINE HCL 100 MG TABLET PO SCH (09:00)
[2018-02-07] MEDS: POTASSIUM CHLORIDE 20 MEQ TAB.PRT.SR PO SCH ×2 (09:35→10:34)
[2018-02-07] MEDS: GABAPENTIN 100 MG CAPSULE PO SCH ×2 (12:55→16:41)
[2018-02-07] MEDS: DOXAZOSIN MESYLATE (4 MG) 4 MG TABLET PO SCH ×2 (14:11→20:49)
--- NOTE | 2018-02-07 14:59 | NUR ---
Social service consult requested by Dr. Leonardo for alcohol abuse. Pt. is a 77 year old male who was admitted to [facility] for elevated troponin. SW met with pt. bedside. Pt. is alert and oriented x 3. Pt. appears a bit guarded but cooperative. Pt's mood is congruent. Pt. was lying in bed with his shoes on. Pt. states he resides alone in an apartment located at [address] in [place]. Pt. was discharged from [facility] on January 04, 2018. Pt. has a psychiatric diagnosis of Major Depressive Disorder. However, pt. states he is not taking his medication. Pt is currently denying any suicidal and homicidal ideations and visual/auditory hallucinations at this time. Pt. informed SW he gets lonely at home and would like a caregiver. SW informed pt. that she could give him some referrals for caregivers and he would have to pay. Pt. did not want to pay for the caregiver. Pt. drinks 1/5th of vodka daily. Pt. states he has never been to an alcohol treatment program. DAVID inquired with pt. if he would like to go to one. Pt. states, " I will think about it." Pt. denies any drug use. Pt. is awaiting a psychiatric consult.
--- NOTE | 2018-02-07 15:33 | NUR ---
RESP TX DEFERRED, LISA BENJAMÍN NOTIFIED, PT SLEEPING COMFORTABLY, PRESENTS NO S/S OF SOB AT THIS TIME. WILL CONT TO MONITOR Addendum: 02/07/18 at 1534 by KARO MAE RT Amended: Links added.
--- NOTE | 2018-02-07 15:35 | NUR ---
Met with patient,he seems somnolent but easily arouse. He has hx of polysubstance abuse and poor compliance. He lives alone at [address], [place] [address];([phone]). Prior to admission, he was ambulatory and independent with adl's. Had hx of multiple inpatient psyche admissions in the past.His daughter Fe [phone] is his primary source of support. Spoke with Feliciano @ [facility] [phone], they were unable to start homehealth due to patient has not been responding to their calls. Patient refused substance abuse rehab and SNF. He want to return home and will use [facility] when discharge. Addendum: 02/07/18 at 1535 by EMELI ACOSTA RN Amended: Links added.
[2018-02-07 16:00] VITALS: BP 132/74
[2018-02-07] MEDS: Thiamine 100 MG in IV D5W 50 ML IV SCH (16:41)
[2018-02-07] MEDS: Folic acid 1 MG in IV D5W 50 ML IV SCH (17:26)
--- NOTE | 2018-02-07 19:28 | NUR ---
RN NOTES ENDORSED PATIENT FOR CONTINUITY OF CARE. PATIENT ON STABLE CONDITION. NO ACUTE CHANGES THROUGHOUT SHIFT. SAFETY MEASURES OBSERVED AT ALL TIMES. ALL NEEDS ANTICIPATED. CALL LIGHT WITHIN EASY REACH.
[2018-02-07 20:00] VITALS: BP 116/61
[2018-02-07 20:11] VITALS: BP 116/47
[2018-02-07] MEDS: ZOLPIDEM TARTRATE 5 MG TABLET PO PRN (23:01)
[2018-02-08] MEDS: ALBUTEROL FS 2.5 MG/3 ML VIAL.NEB NEB SCH ×6 (02:35→23:18)
[2018-02-08 04:00] VITALS: BP 120/70
[2018-02-08 04:43] VITALS: BP 120/70
--- NOTE | 2018-02-08 07:40 | NUR ---
ms rn received on bed,awake,alert 0riented x4,not in any form of distress,respirations even and unlabored,no sob noted, lungs are clear,abdomen is soft,positive bowel sounds,denies pain at this time,all needs attended.
[2018-02-08 08:00] VITALS: BP 115/75
[2018-02-08] MEDS: LORAZEPAM 1 MG TABLET PO PRN ×3 (09:19→21:41)
[2018-02-08] MEDS: ASCORBIC ACID 500 MG TABLET PO SCH (09:19)
[2018-02-08] MEDS: GABAPENTIN 100 MG CAPSULE PO SCH ×3 (09:19→16:02)
[2018-02-08] MEDS: CHOLECALCIFEROL 1,000 UNIT TABLET (VIT D3) PO SCH (09:19)
[2018-02-08] MEDS: CARVEDILOL 3.125 MG TABLET PO SCH ×2 (09:20→20:21)
[2018-02-08] MEDS: DOXAZOSIN MESYLATE (4 MG) 4 MG TABLET PO SCH ×2 (09:20→20:21)
--- NOTE | 2018-02-08 09:20 | NUR ---
ms tucker breakfast served,due meds given,tolerated weel.
[2018-02-08] MEDS ORDERED: Magnesium 1GM/D5W 100ML PREMIX 100 ML IV SCH (10:32)
[2018-02-08] MEDS ORDERED: THIAMINE HCL 100 MG TABLET PO SCH (11:30)
[2018-02-08] MEDS: GUAIFENESIN/D-METHORPHAN HB 5 ML UDC PO PRN (11:58)
[2018-02-08] MEDS: TRAMADOL HCL 50 MG TABLET PO PRN ×2 (11:58→20:21)
[2018-02-08 12:00] VITALS: BP 115/75
[2018-02-08] MEDS: FOLIC ACID 1 MG TABLET PO SCH (12:13)
[2018-02-08 12:28] LABS: CALCIUM, SERUM 8.2 mg/dL (8.5-10.1); CARBON DIOXIDE 23 mmol/L (21-32); CHLORIDE 106 mmol/L (98-107); GLUCOSE 115 mg/dL (74-106); POTASSIUM 4.1 mmol/L (3.5-5.1); SODIUM SERUM 140 mmol/L (136-145); UREA NITROGEN, BLOOD 8 mg/dL (7-18)
[2018-02-08 16:00] VITALS: BP 133/75
--- NOTE | 2018-02-08 17:00 | NUR ---
ms rn patient constantly getting all his pain and anxiety meds.
[2018-02-08 20:00] VITALS: BP 123/66
[2018-02-08] MEDS: ZOLPIDEM TARTRATE 5 MG TABLET PO PRN (20:22)
[2018-02-08] MEDS ORDERED: LORAZEPAM 1 MG TABLET PO PRN (23:30)
[2018-02-09] MEDS: ACETAMINOPHEN 325 MG TABLET PO PRN (01:16)
[2018-02-09] MEDS: ALBUTEROL FS 2.5 MG/3 ML VIAL.NEB NEB SCH ×6 (03:52→23:21)
[2018-02-09 04:00] VITALS: BP 131/73
[2018-02-09] MEDS: TRAMADOL HCL 50 MG TABLET PO PRN ×2 (05:02→20:29)
--- NOTE | 2018-02-09 07:00 | NUR ---
RN MS OPENING NOTES RECEIVED PATIENT AWAKE IN HALLWAY. A/O X3 VERY LOUD AND OUTSPOKE. NO SIGNS AND SYMPTOMS OF RESPIRATORY DISTRESS OR ACUTE PAIN. SKIN INTACT. RFA SALINE LOCK # 22 GAUGE. SAFETY PRECAUTIONS IN PLACE CALL LIGHT WITHIN REACH WILL CONT TO MONITOR
[2018-02-09 08:00] VITALS: BP 102/63
[2018-02-09] MEDS: GABAPENTIN 100 MG CAPSULE PO SCH ×3 (08:06→17:02)
[2018-02-09] MEDS: FOLIC ACID 1 MG TABLET PO SCH (08:07)
[2018-02-09] MEDS: CHOLECALCIFEROL 1,000 UNIT TABLET (VIT D3) PO SCH (08:07)
[2018-02-09] MEDS: DOXAZOSIN MESYLATE (4 MG) 4 MG TABLET PO SCH ×2 (08:07→20:30)
[2018-02-09] MEDS: LORAZEPAM 1 MG TABLET PO PRN ×2 (08:07→20:30)
[2018-02-09] MEDS: CARVEDILOL 3.125 MG TABLET PO SCH ×2 (08:08→20:30)
[2018-02-09] MEDS: ASCORBIC ACID 500 MG TABLET PO SCH (08:11)
[2018-02-09] MEDS: THIAMINE HCL 100 MG TABLET PO SCH ×2 (09:10→09:35)
--- NOTE | 2018-02-09 09:53 | NUR ---
LISA LOPEZ NOTES DR PITTS HERE TO EVALUATE PATIENT MISC ORDER ENTERED PSYCH CLEARED. CALL PUT INTO DR OROZCO FOR POSSIBLE DISCHARGE ORDERS. Addendum: 02/09/18 at 1212 by CRISTHIAN MORRISON RN CORRECTION DR HONG BUI
[2018-02-09] MEDS ORDERED: LACTULOSE 10 G/15 ML UDC (PYXIS) PO PRN (10:00)
[2018-02-09] MEDS ORDERED: TESTOSTERONE CYPIONATE 1,000 MG/10 ML VIAL IM SCH (15:00)
[2018-02-09 16:00] VITALS: BP 134/77
--- NOTE | 2018-02-09 19:15 | NUR ---
RN MS CLOSING NOTES NOTES REPORT GIVEN TO NOC SHIFT PATIENT AWAKE IN HALLWAY. A/O X3 VERY LOUD AND OUTSPOKEN. NO SIGNS AND SYMPTOMS OF RESPIRATORY DISTRESS OR ACUTE PAIN. SKIN INTACT. RFA SALINE LOCK # 22 GAUGE.PSYCH EVALUATION DONE AND CLEARED FOR DISCHARGE IN THE MORNING SAFETY PRECAUTIONS IN PLACE CALL LIGHT WITHIN REACH WILL KIARA
[2018-02-10 00:03] VITALS: BP 134/77
[2018-02-10] MEDS: ALBUTEROL FS 2.5 MG/3 ML VIAL.NEB NEB SCH ×7 (03:10→23:33)
[2018-02-10] MEDS: GUAIFENESIN/D-METHORPHAN HB 5 ML UDC PO PRN ×2 (03:43→08:02)
[2018-02-10] MEDS: LORAZEPAM 1 MG TABLET PO PRN ×4 (04:43→23:59)
[2018-02-10] MEDS: TRAMADOL HCL 50 MG TABLET PO PRN (04:43)
[2018-02-10 06:12] VITALS: BP 135/55
--- NOTE | 2018-02-10 07:39 | NUR ---
RN NOTE: PATIENT RECEIVED ALERT AWAKE ORIENTED X 4. ON ROOM AIR, NO BREATHING DISTRESS NOTED. NO C/O PAIN AT THIS TIME. SKIN INTACT. IV CATH SALINE LOCK. SAFETY MEASURES OBSERVED. WILL CONTINUE TO MONITOR. CALL LIGHT WITHIN REACH.
[2018-02-10 07:45] LABS: BASOPHILS % (AUTO) 0.5 % (0.0-2.0); EOSINOPHILS % (AUTO) 1.9 % (0.0-6.0); HEMATOCRIT 40 % (39-51); HEMOGLOBIN 12.7 g/dL (13.5-17.5); LYMPHOCYTES # (AUTO) 2.2 /CMM (0.8-4.8); LYMPHOCYTES % (AUTO) 37.2 % (20.0-44.0); MEAN CORPUSCULAR HGB CONC 32 g/dl (31.0-36.0); MEAN CORPUSCULAR VOLUME 81 fL (80-96); MONOCYTES # (AUTO) 0.7 /CMM (0.1-1.30); MONOCYTES % (AUTO) 11.4 % (2.0-12.0); NEUTROPHILS # (AUTO) 2.9 /CMM (1.8-8.9); PLATELET COUNT (AUTO) 130 /CMM (150-450); RED BLOOD CELL COUNT(AUTO) 4.89 MIL/uL (4.5-6.0)
[2018-02-10 07:46] LABS: CALCIUM, SERUM 8.7 mg/dL (8.5-10.1); CARBON DIOXIDE 27 mmol/L (21-32); CHLORIDE 106 mmol/L (98-107); GLUCOSE 123 mg/dL (74-106); POTASSIUM 4.3 mmol/L (3.5-5.1); SODIUM SERUM 141 mmol/L (136-145); UREA NITROGEN, BLOOD 8 mg/dL (7-18)
[2018-02-10 07:52] LABS: ALANINE AMINOTRANSFERASE 433 U/L (12-78); ALBUMIN 2.7 g/dL (3.4-5.0); ALKALINE PHOSPHATASE 58 U/L (46-116); ASPARTATE AMINOTRANSFERASE 88 U/L (15-37); BILIRUBIN,DIRECT 0.2 mg/dL (0.0-0.2); BILIRUBIN,TOTAL 0.7 mg/dL (0.2-1.0); MAGNESIUM 1.8 mg/dL (1.8-2.4); PHOSPHORUS 3.8 mg/dL (2.5-4.9); TOTAL PROTEIN, SERUM 6.5 g/dL (6.4-8.2)
[2018-02-10 08:00] VITALS: BP 135/82
[2018-02-10] MEDS: THIAMINE HCL 100 MG TABLET PO SCH (08:03)
[2018-02-10] MEDS: GABAPENTIN 100 MG CAPSULE PO SCH ×3 (08:04→17:20)
[2018-02-10] MEDS: FOLIC ACID 1 MG TABLET PO SCH (08:04)
[2018-02-10] MEDS: CARVEDILOL 3.125 MG TABLET PO SCH ×2 (08:04→21:06)
[2018-02-10] MEDS: CHOLECALCIFEROL 1,000 UNIT TABLET (VIT D3) PO SCH (08:04)
[2018-02-10] MEDS: ASCORBIC ACID 500 MG TABLET PO SCH (08:04)
[2018-02-10] MEDS: DOXAZOSIN MESYLATE (4 MG) 4 MG TABLET PO SCH ×2 (08:05→21:07)
--- NOTE | 2018-02-10 15:42 | NUR ---
RN MS NOTES RECEIVED REPORT ON PT A/O X3 AMBULATORY STABLE
[2018-02-10 16:00] VITALS: BP 135/61
--- NOTE | 2018-02-10 19:13 | NUR ---
RN MS CLOSING NOTES NOTES REPORT GIVEN TO NOC SHIFT PATIENT AWAKE IN HALLWAY. A/O X3 . NO SIGNS AND SYMPTOMS OF RESPIRATORY DISTRESS OR ACUTE PAIN. SKIN INTACT.COMPLAINTS OF FEELING UNSTABLE AND SHAKY LEGS ATIVAN GIVEN Q6HRS RFA SALINE LOCK # 22 GAUGE.PSYCH EVALUATION DONE AND CLEARED FOR DISCHARGE IN THE MORNING IF MEDICALLY CLEARED.SAFETY PRECAUTIONS IN PLACE CALL LIGHT WITHIN REACH WILL KIARA
[2018-02-10 20:00] VITALS: BP 136/55
--- NOTE | 2018-02-10 20:00 | NUR ---
RN INITIAL NOTE RECEIVED PATIENT IN BED, A/O X 2-3, ABLE TO COMMUNICATE WELL, NOT ON ANY FORM OF DISTRESS, BREATHING UNLABORED, ON ROOM AIR, SATING WELL, IV ON THE R FA INTACT, S/L. PATIENT AMBULATORY AND ABLE TO FOLLOW COMMANDS, PATIENT ORIENTED TO THE FLOOR, SAFETY MEASURES OBSERVED AND MAINTAINED, SRX2 UP, BED LOW AND LOCKED, BED ALARM ON, CALL LIGHT WITHIN REACH, WILL CONTINUE TO MONITOR,
[2018-02-10 20:55] VITALS: BP 136/55
[2018-02-10] MEDS: ZOLPIDEM TARTRATE 5 MG TABLET PO PRN (21:07)
[2018-02-11] MEDS: ALBUTEROL FS 2.5 MG/3 ML VIAL.NEB NEB SCH ×3 (02:01→11:41)
[2018-02-11 04:00] VITALS: BP 122/71
[2018-02-11] MEDS: LORAZEPAM 1 MG TABLET PO PRN (06:50)
--- NOTE | 2018-02-11 07:20 | NUR ---
MS RN OPENING NOTES RECEIVED PT ON BED.ALERT/ORIENTED X4.ON ROOM AIR,TOLERATING WELL.CAN AMBULATE WITH FFW WITH MINIMAL SUPERVISION.NO SOB AND ACUTE DISTRESS NOTED.SKIN IS INTACT.IV LINE IS ON RIGHT FA G22,SITE IS CLEAN,DRY AND INTACT.NO INFILTRATION NOTED.SAFETY IS MAINTAINED ANASTASIYA ALL TIMES.BED IS IN LOW POSITION AND LOCKED.CALL LIGHT IS WITHIN REACH.CONTINUE TO MONITOR THE PT CLOSELY AND PLANNING FOR D/C TODAY,WAITING FOR THE MD TO SEE THE PT.
--- NOTE | 2018-02-11 07:20 | NUR ---
RN CLOSING NOTES NO CHANGE IN PTS CONDITION OVERNIGHT. NO SIGNS AND SYMPTOMS OF RESPIRATORY DISTRESS OR ACUTE PAIN. SKIN INTACT. ATIVAN GIVEN Q6HRS. R FA SALINE LOCK # 22 GAUGE .SAFETY PRECAUTIONS IN PLACE CALL LIGHT WITHIN REACH. WILL ENDORSE TO AM RN.
[2018-02-11 08:00] VITALS: BP 117/77
[2018-02-11] MEDS: GABAPENTIN 100 MG CAPSULE PO SCH ×2 (08:14→12:16)
[2018-02-11] MEDS: FOLIC ACID 1 MG TABLET PO SCH (08:14)
[2018-02-11] MEDS: ASCORBIC ACID 500 MG TABLET PO SCH (08:14)
[2018-02-11 08:15] VITALS: BP 117/77
[2018-02-11] MEDS: DOXAZOSIN MESYLATE (4 MG) 4 MG TABLET PO SCH (08:15)
[2018-02-11] MEDS: THIAMINE HCL 100 MG TABLET PO SCH (08:15)
[2018-02-11] MEDS: CHOLECALCIFEROL 1,000 UNIT TABLET (VIT D3) PO SCH (08:15)
[2018-02-11] MEDS: CARVEDILOL 3.125 MG TABLET PO SCH (08:15)
[2018-02-11] MEDS: GUAIFENESIN/D-METHORPHAN HB 5 ML UDC PO PRN (09:07)
[2018-02-11] MEDS: TRAMADOL HCL 50 MG TABLET PO PRN (09:25)
--- NOTE | 2018-02-11 14:50 | NUR ---
MS RN NOTES (PCP)GAVE THE ORDER FOR DISCHARGE TODAY TO CHARGE NURSE,COMPLETED THE DISCHARGE PROCESS AND INSTRUCTIONS AND ASSESSMENTS.
[2018-02-11] MEDS ORDERED: Thiamine HCL PO (15:00)
[2018-02-11] MEDS ORDERED: GABA100C PO (15:00)
--- NOTE | 2018-02-11 15:15 | NUR ---
MS RN NOTES DISCHARGE INSTRUCTIONS EXPLAINED TO THE PT AND HE VERBALIZED THAT HE UNDERSTOOD.SKIN ASSESSMENT HAS DONE AND NOTED SKIN IS INTACT.VITAL SIGNS ARE CHECKED AND IT IS STABLE.MEDICATION PRESCRIPTION GIVEN TO THE PT.ALL THE BELONGINGS HAS DONE AND SIGNED BY THE PT.ALL THE DISCHARGE EDUCATIONS ARE WELL EXPLAINED TO THE PT.NO IV LINE IS NOTED.
--- NOTE | 2018-02-11 15:30 | NUR ---
MS INSTRUMENT INSPECTOR NOTES PT IS READY TO DISCHARGE TO HOME VIA TAXI.CHARGE NURSE ACCOMPANIED WITH THE PT TO THE PARKING LOT BY WALKING.NO COMPLICATIONS NOTED.NO SOB AND ACUTE DISTRESS NOTED.
== END 2018-02-11 15:22 | disposition home or self-care (01) | DRG 896 ==
LOC: ER 13:13 → MEDSG1 15:24 → TELE1 16:57 → MEDSG1 02-07 08:37
PROVIDERS: ADMIT Internal Medicine; ATTEND Internal Medicine
DX: F10.229 Alcohol dependence with intoxication, unspecified (principal); I21.A1 Myocardial infarction type 2; E87.2 Acidosis; Y90.6 Blood alcohol level of 120-199 mg/100 ml; F32.9 Major depressive disorder, single episode, unspecified; F10.239 Alcohol dependence with withdrawal, unspecified; T51.0X1A Toxic effect of ethanol, accidental (unintentional), initial encounter; G31.2 Degeneration of nervous system due to alcohol; K70.10 Alcoholic hepatitis without ascites; F41.9 Anxiety disorder, unspecified; N40.0 Benign prostatic hyperplasia without lower urinary tract symptoms; E83.42 Hypomagnesemia; R26.9 Unspecified abnormalities of gait and mobility; R74.0 Nonspecific elevation of levels of transaminase and lactic acid dehydrogenase [LDH]; K72.90 Hepatic failure, unspecified without coma; Z96.649 Presence of unspecified artificial hip joint; F17.210 Nicotine dependence, cigarettes, uncomplicated
CPT/HCPCS: 36415; 71046; 76705-TC; 80048-TC; 80053-TC; 80061-TC; 80076-TC; 82140-TC; 82248-TC; 82550-TC; 82553-TC; 83605-TC; 83690-TC; 83735-TC; 84100-TC; 84443-TC; 84484-TC; 85025-TC; 85610-TC; 87040-TC; 87081-TC; 93307-TC; 94760-TC; A4606; A6402; G0378; G0480; J1071; J2405; J3411; J3475; J3490; J7030; J7060; Z7610

== ENCOUNTER 2018-02-11 23:51 | Emergency (ER) | payer BC, MEDICARE ==
[~2018-02-11] VITALS: Ht 170.2 cm; Wt 78.0 kg
[~2018-02-11 23:51] MED LIST changes: +GABA100C PO; +Thiamine HCL PO
--- NOTE | 2018-02-12 00:05 | NUR ---
PT PRESENTED TO THE ER WITH A C/O SOB. PT IS SPEAKING IN COMPLETE SENTENCES, BUT SOUNDS TIGHT. PT WAS JUST D/C'D FROM THE HOSPITAL AT 1700 YESTERDAY AND DID NOT FILL HIS RX ONCE DISCHARGED. PT AMBULATED TO ER 1 WITH A STEADY GAIT. PT STATED THAT HIS BLE HURT AND HE WAS TREATED FOR RESTLESS LEG SYNDROME WHILE IN THE HOSPITAL. PT IS ON THE MONITOR AND CONTINUOUS PULSE OX. PT'S O2 SAT IS 97% ON RA. RT WAS CALLED AND BREATHING TX WAS ORDERED.
[2018-02-12] MEDS ORDERED: IPRATROPIUM NEB FS 0.5 MG/2.5 ML AMPUL.NEB ONE (00:23)
[2018-02-12] MEDS ORDERED: ALBUTEROL FS 2.5 MG/3 ML VIAL.NEB ONE (00:23)
--- NOTE | 2018-02-12 00:28 | NUR ---
PT IS YELLING AND C/O FEELING COLD. PT REC'D WARM BLANKETS. 20G IV STARTED IN LFA. BLOOD WAS DRAWN AND SENT TO LAB
[2018-02-12] MEDS ORDERED: ALBUTEROL FS 2.5 MG/3 ML VIAL.NEB NEB ONE (00:30)
[2018-02-12] MEDS ORDERED: IPRATROPIUM NEB FS 0.5 MG/2.5 ML AMPUL.NEB NEB ONE (00:30)
[2018-02-12 00:44] LABS: BASOPHILS % (AUTO) 0.4 % (0.0-2.0); EOSINOPHILS % (AUTO) 1.8 % (0.0-6.0); HEMATOCRIT 42 % (39-51); HEMOGLOBIN 13.3 g/dL (13.5-17.5); LYMPHOCYTES # (AUTO) 2.6 /CMM (0.8-4.8); LYMPHOCYTES % (AUTO) 41.3 % (20.0-44.0); MEAN CORPUSCULAR HGB CONC 32 g/dl (31.0-36.0); MEAN CORPUSCULAR VOLUME 81 fL (80-96); MONOCYTES # (AUTO) 0.9 /CMM (0.1-1.30); MONOCYTES % (AUTO) 14.3 % (2.0-12.0); NEUTROPHILS # (AUTO) 2.7 /CMM (1.8-8.9); NEUTROPHILS % (AUTO) 42.2 % (43.0-81.0); PLATELET COUNT (AUTO) 165 /CMM (150-450); RED BLOOD CELL COUNT(AUTO) 5.14 MIL/uL (4.5-6.0); WHITE BLOOD COUNT (AUTO) 6.4 K/uL (4.3-11.0)
--- NOTE | 2018-02-12 00:46 | NUR ---
RADIOLOGY AT BEDSIDE
--- NOTE | 2018-02-12 00:50 | NUR ---
PT WANTS TO BE "ADMITTED BACK UPSTAIRS". PT WAS TOLD THAT WE HAD TO WAIT FOR ALL THE TESTS TO RESULT AND THEN THE DR WOULD DETERMINE WHETHER OR NOT THE PT COULD BE ADMITTED. PT THEN DECIDED HE WANTED TO LEAVE. PT ASKED TO HAVE THE IV AND ALL MONITOR LEADS REMOVED. IV removed. Catheter intact and site benign. Pressure and 4x4 applied to site. No bleeding noted. PT AMBULATED OUT TO THE NURSES STATION AND WAS GOING TO SIGN OUT AMA.
[2018-02-12 01:03] LABS: CALCIUM, SERUM 8.7 mg/dL (8.5-10.1); CARBON DIOXIDE 26 mmol/L (21-32); CHLORIDE 108 mmol/L (98-107); GLUCOSE 77 mg/dL (74-106); POTASSIUM 3.6 mmol/L (3.5-5.1); SODIUM SERUM 143 mmol/L (136-145); UREA NITROGEN, BLOOD 11 mg/dL (7-18)
--- NOTE | 2018-02-12 01:05 | NUR ---
PT COULD NOT FIND HIS PHONE AND DID NOT WANT TO HAVE ADMITTING CALL A TAXI. PT DECIDED TO STAY AND WAIT FOR RESULTS.
[2018-02-12 01:07] LABS: B-TYPE NATRIURETIC PEPTIDE 173 PG/ML (0-125)
--- NOTE | 2018-02-12 01:10 | NUR ---
PT WAS YELLING THAT HE WAS COLD AND HIS LEGS HURT. PT REC'D WARM BLANKETS. PT STATED: "I JUST WANT TO GO UPSTAIRS WHERE I WAS YESTERDAY. CAN'T I JUST GO UP THERE MYSELF." PT WAS TOLD THAT HE WOULD NEED TO BE ADMITTED THROUGH THE ER AND HE CAN NOT JUST GO UPSTAIRS.
--- NOTE | 2018-02-12 01:24 | NUR ---
Patient does not wish to proceed with medical care recommended by Dr. ANAND. Patient given information related to possible complications, up to and including , which could occur as a result of leaving the hospital at this time. Patient verbalizes understanding of risks involved due to leaving against medical advice. Patient has signed AMA form.
--- NOTE | 2018-02-12 01:25 | NUR ---
PT AMBULATED OUT TO THE LOBBY WITH A STEADY GAIT. VSS. PT LEFT AMA.
[2018-02-12 02:38] VITALS: BP 119/67
== END 2018-02-12 01:25 | disposition left against medical advice (07) ==
LOC: ER 23:52
DX: R06.02 Shortness of breath (principal); I10 Essential (primary) hypertension; F10.10 Alcohol abuse, uncomplicated; Y90.9 Presence of alcohol in blood, level not specified; Z96.649 Presence of unspecified artificial hip joint; Z60.2 Problems related to living alone; Z76.5 Malingerer [conscious simulation]; Z79.82 Long term (current) use of aspirin
CPT/HCPCS: 36415; 71045; 80048; 83880; 84484; 85025; 93005; 94640; 99284; A4606; Z7610